=== PATIENT | female | born 1960 | race Caucasian/White ===

== ENCOUNTER 2017-06-29 17:52 | Emergency (ER) | payer OTHER ==
[2017-06-29] MEDS ORDERED: DERMABOND SKIN ADHESIVE TOP ONE (19:44)
[2017-06-29] MEDS ORDERED: TETANUS & DIPHTHERIA TOX,ADULT 0.5 ML VIAL ONE (19:45)
--- NOTE | 2017-06-29 19:55 | EDPHYS ---
Physician Documentation [facility] Name: Katie Velasquez Age: 56 yrs Sex: Female : 1960 Arrival Date: 06/29/2017 Time: 17:56 Bed 11 Private MD: ED Physician Luis Alberto Dickey HPI: 06/29 19:25 This 56 yrs old Female presents to ER via Ambulatory with complaints of rn Finger Injury. 19:25 Mechanism of injury: weedeater. Associated injuries: The patient sustained left hand. rn The patient has not experienced similar symptoms in the past. Reports using weedeater, got cut on left hand/fingers, tetanus not up to date, has cleaned her fingers repeatedly, + mild bleeding noted. . 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 - Social history:: Smoking status: Patient uses tobacco products, smokes one-half pack cigarettes per day. - Family history:: not pertinent. - Hospitalizations: : No recent hospitalization is reported. ROS: 19:25 Constitutional: Negative for fever, chills, and weight loss, MS/Extremity: + for injury rn and lacerations to left hand Exam: 19:25 Constitutional: This is a well developed, well nourished patient who is awake, alert, rn and in no acute distress. MS/ Extremity: Pulses equal, no cyanosis. Neurovascular intact. Full, normal range of motion. Equal circumference. Small subcentimeter lacerations to left distal 2nd/4th/5th digits, no foreign body, no active bleeding, wounds clean Vital Signs: 18:04 BP 119 / 88; Pulse 91; Resp 15; Temp 97.7; Pulse Ox 95% on R/A; Weight 64.41 kg; Height aj 5 ft. 3 in. (160.02 cm); Pain 2/10; 20:02 BP 153 / 89; Pulse 76; Resp 14; Pulse Ox 100% on R/A; Pain 4/10; bs1 18:04 Body Mass Index 25.15 (64.41 kg, 160.02 cm) aj Laceration: 19:50 Wound Repair of 0.5cm ( 0.2in ) subcutaneous laceration to left 2nd/4th/5th distal rn digits. Distal neuro/vascular/tendon intact. Wound prep: Extensive cleansing with hibiclenz by nurse, Wound irrigation by nurse. Skin closed with 3 thin layer Adhesive skin closure using Dermabond. Dressed with bandaid. Patient tolerated well. MDM: 19:20 Patient medically screened. rn 19:50 Differential diagnosis: finger lacerations. Data reviewed: vital signs, nurses notes, rn and as a result, I will discharge patient. Counseling: I had a detailed discussion with the patient and/or guardian regarding: the historical points, exam findings, and any diagnostic results supporting the discharge/admit diagnosis, the need for outpatient follow up, to return to the emergency department if symptoms worsen or persist or if there are any questions or concerns that arise at home. Response to treatment: the patient's symptoms have markedly improved after treatment, and as a result, I will discharge patient. Special discussion: I discussed with the patient/guardian in detail that at this point there is no indication for admission to the hospital. It is understood, however, that if the symptoms persist or worsen the patient needs to return immediately for re-evaluation. ED course: Wounds cleansed and closed with dermabond, tetanus updated, will dc home with augmentin given dirty wounds and now wounds are sealed. . 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 Exp: bs1 07/17/2019. Lot #: [id number]. } Route: IM; Site: right deltoid; 20:06 Follow up: Response: No adverse reaction bs1 Disposition: 06/29/17 19:54 Discharged to Home. Impression: Superficial lacerations of left 2nd/4th/5th digits. - Condition is Stable. - Discharge Instructions: Tissue Adhesive Wound Care. - Prescriptions for Augmentin 875- 125 mg Oral Tablet - take 1 tablet by ORAL route every 12 hours for 10 days; 20 tablet. - Medication Reconciliation Form, Thank You Letter, Antibiotic Education, Prescription Opioid Use form. - Follow up: Private Physician; When: As needed; Reason: Recheck today's complaints, Re-evaluation by your physician. - Problem is new. - Symptoms have improved. Signatures: Leandra Elliott, RN RN Luis Alberto Prescott MD MD rn Salazar, Brittany, RN RN bs1
--- NOTE | 2017-06-29 19:55 | ER ---
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 Transition of care: patient was not received from another setting of care. Onset of symptoms was June 29, 2017. Care prior to arrival: None. 18:03 Method Of Arrival: Ambulatory aj 18:03 Acuity: COTY 4 aj Triage Assessment: 18:04 General: Appears in no apparent distress. comfortable, Behavior is calm, cooperative, aj appropriate for age, Smells of alcohol. Pain: Complains of pain in palmar aspect of distal phalanx of left little finger, palmar aspect of distal phalanx of left ring finger and palmar aspect of distal phalanx of left index finger. Neuro: Level of Consciousness is awake, alert, obeys commands, Oriented to person, place, time, situation. Respiratory: Airway is patent Respiratory effort is even, unlabored, Respiratory pattern is regular, symmetrical. Derm: Skin is intact, is healthy with good turgor, Skin is pink, warm \T\ dry. normal. Musculoskeletal: Circulation, motion, and sensation intact. Injury Description: Laceration sustained to palmar aspect of distal phalanx of left little finger, palmar aspect of distal phalanx of left ring finger and palmar aspect of distal phalanx of left index finger. 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 - Social history:: Smoking status: Patient uses tobacco products, smokes one-half pack cigarettes per day. - Family history:: not pertinent. - Hospitalizations: : No recent hospitalization is reported. Screenin:45 Abuse screen: Denies threats or abuse. Denies injuries from another. Nutritional bs1 screening: No deficits noted. Tuberculosis screening: No symptoms or risk factors identified. Fall Risk None identified. Assessment: 19:35 General: Appears in no apparent distress. Behavior is calm. Pain: Complains of pain in bs1 left hand and palmar aspect of distal phalanx of left index finger and palmar aspect of distal phalanx of left ring finger and palmar aspect of distal phalanx of left little finger Pain does not radiate. Pain currently is 7 out of 10 on a pain scale. Quality of pain is described as throbbing. Neuro: Level of Consciousness is awake, alert, obeys commands, Oriented to person, place, time, situation, Appropriate for age. Respiratory: Airway is patent Trachea midline Respiratory effort is even, unlabored, Breath sounds are clear bilaterally. Derm: Wound noted. Derm: Wound noted left hand and palmar aspect of distal phalanx of left index finger and palmar aspect of distal phalanx of left ring finger and palmar aspect of distal phalanx of left little finger Bruising that is dark purple, less than 1 cm, no bleeding noted, red/swollen/bruised. Injury Description: Laceration. 19:45 Reassessment: Cleaned patients left hand with chlorahexidine. Prepared dermabond x2 at bs1 bedside for Dr Dickey, verbal order. Vital Signs: 18:04 BP 119 / 88; Pulse 91; Resp 15; Temp 97.7; Pulse Ox 95% on R/A; Weight 64.41 kg; Height aj 5 ft. 3 in. (160.02 cm); Pain 2/10; 20:02 BP 153 / 89; Pulse 76; Resp 14; Pulse Ox 100% on R/A; Pain 4/10; bs1 18:04 Body Mass Index 25.15 (64.41 kg, 160.02 cm) ED Course: 17:56 Patient arrived in ED. mr 18:03 Triage completed. aj 18:04 Arm band placed on right wrist. Patient placed in waiting room, Patient notified of aj wait time. 19:11 Hanny Cummings, MARÍA is Primary Nurse. bs1 19:20 Luis Alberto Dickey MD is Attending Physician. rn 19:45 Patient has correct armband on for positive identification. Call light in reach. bs1 20:06 No provider procedures requiring assistance completed. Patient did not have IV access bs1 during this emergency room visit. 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 Exp: bs1 07/17/2019. Lot #: [id number]. } Route: IM; Site: right deltoid; 20:06 Follow up: Response: No adverse reaction bs1 Outcome: 19:54 Discharge ordered by . rn 20:07 Discharged to home ambulatory. bs1 20:07 Condition: stable 20:07 Discharge instructions given to patient, Instructed on discharge instructions, follow up and referral plans. medication usage, Demonstrated understanding of instructions, follow-up care, medications, Prescriptions given X 1. 20:07 Patient left the ED. bs1 Signatures: Leandra Elliott, RN Suly Santos Roman, MD MD rn Salazar, Brittany, RN RN bs1
[2017-06-29 20:22] VITALS: TEMP 97.7
[2017-06-29 20:23] VITALS: BP 153/89; O2SAT 100
== END 2017-06-29 20:07 | disposition home or self-care (01) ==
LOC: ER 17:52
PROC: 0JQK0ZZ Repair Left Hand Subcutaneous Tissue and Fascia, Open Approach (ICD-10-PCS; principal; 2017-06-29)
DX: S61.215A Laceration without foreign body of left ring finger without damage to nail, initial encounter (principal); S61.217A Laceration without foreign body of left little finger without damage to nail, initial encounter; Y93.H2 Activity, gardening and landscaping; Y92.007 Garden or yard of unspecified non-institutional (private) residence as the place of occurrence of the external cause; Z88.8 Allergy status to other drugs, medicaments and biological substances; Z88.6 Allergy status to analgesic agent; Z91.030 Bee allergy status; Z23 Encounter for immunization; F17.210 Nicotine dependence, cigarettes, uncomplicated
CPT/HCPCS: 90714; 99283

== ENCOUNTER 2017-12-12 14:54 | Observation (INO) | payer OTHER ==
[2017-12-12] MEDS ORDERED: FAMOTIDINE 20 MG/2 ML VIAL IV ONE (15:45)
[2017-12-12] MEDS ORDERED: ONDANSETRON 4 MG/2 ML VIAL ONE (15:45)
[2017-12-12] MEDS ORDERED: MORPHINE 4 MG/ML SYR ONE (15:45)
[2017-12-12] MEDS ORDERED: NA CHLORIDE 0.9% 1,000 ML ONE (15:45)
[2017-12-12 15:53] LABS: Absolute Monocytes 0.6 K/uL (0.1-1.3); Absolute Neutrophil 8.7 K/uL (1.8-8.0); Basophils % 0.2 % (0-1.3); Eosinophils % 0.1 % (0-4.4); Hematocrit 44.9 % (36.0-45.0); Lymphocytes % 9.8 % (15.3-44.8); MCH 34.1 pg (27.0-35.0); MCV 98.8 fL (80-100); Monocytes % 5.7 % (3.3-12.3); RBC Red Blood Cell Count 4.54 M/uL (3.86-4.86)
[2017-12-12 16:27] LABS: Urine Bacteria <20 /HPF (<20); Urine Culture Reflex Order NOT NEEDED
[2017-12-12 16:28] LABS: ALT/SGPT 34 U/L (12-78); AST/SGOT 31 U/L (15-37); Albumin 3.8 g/dL (3.4-5.0); Alkaline Phosphatase 82 U/L (45-117); Amylase Level 105 U/L (25-115); BUN Blood Urea Nitrogen 9 mg/dL (7-18); Bicarbonate 25 mmol/L (21-32); Bilirubin Direct 0.2 mg/dL (0-0.2); Bilirubin Total 0.7 mg/dL (0.2-1.0); Glucose Level 97 mg/dL (74-106); Lipase 597 U/L (73-393); Potassium 3.9 mmol/L (3.5-5.1); Protein, Total 8.3 g/dL (6.4-8.2); Sodium Level 138 mmol/L (136-145)
[2017-12-12] MEDS ORDERED: DICYCLOMINE HCL 10 MG CAP ONE (16:52)
--- NOTE | 2017-12-12 17:47 | RAD REPORT ---
EXAM DESCRIPTION: CT - Abdomen Pelvis W Contrast - 12/12/2017 5:26 pm CLINICAL HISTORY: Abd pain;Nausea / vomiting<Reason For Exam>Abd pain;Nausea / vomiting COMPARISON: Abdomen Pelvis W Contrast dated 12/13/2016<Comparisons> CT December 2016 TECHNIQUE: Biphasic, helical CT imaging of the abdomen and pelvis was performed following 100 ml non -ionic IV contrast. Oral contrast was given. All CT scans are performed using dose optimization technique as appropriate and may include automated exposure control or mA/KV adjustment according to patient size. FINDINGS: No suspicious findings in the lung bases. Liver, spleen, gallbladder and biliary tree show no acute findings. Symmetric renal function is prese nt with no pyelonephritis or acute renal parenchymal process. No urinary bladder abnormality. Uterus and ovaries show no suspicious findings. Edematous/inflammatory stranding is present adjacent to the head of the pancreas with secondary invol vement of the duodenal C-loop and gastric antrum. Interface between the pancreatic head and duodenal bulb is diminished. No discrete mass identified. Body and tail of the pancreas show no significant fi ndings. Most likely etiology is pancreatitis with secondary bowel involvement. A primary duodenitis o r antritis would be less common. Fundus and body of the stomach show no suspicious findings. Distal duodenum and remainder of small [place] wel unremarkable. No primary colon process seen. The appendix is normal. No free air or pneumatosis. Trace free fluid in the cul-de-sac. No mass or bulky lymphadenopathy. No adrenal abnormality. Disc and bony degenerative changes are present. L5 pars interarticularis defects again noted. IMPRESSION: Mild pancreatitis involving the head of the pancreas. There is secondary involvement of the proximal duodenum and gastric antrum. No abscess, solid mass or other complicating factor.
[2017-12-12 17:59] LABS: Urine Blood 2+ (NEG); Urine Glucose NEGATIVE (NEG); Urine Protein 1+ (NEG); Urine pH 5.5 (5.0-7.0)
[2017-12-12] MEDS ORDERED: PANTOPRAZOLE 40 MG INJ ONE (18:26)
--- NOTE | 2017-12-12 19:46 | ER ---
Nurse's Notes [facility] Name: Katie Velasquez Age: 57 yrs Sex: Female : 1960 Arrival Date: 12/12/2017 Time: 14:57 Bed 28 Private MD: None, None Diagnosis: Acute pancreatitis Presentation: 12/12 15:02 Presenting complaint: Patient states: Abd pain/distension, constipation since last la1 night with vomiting. Transition of care: patient was not received from another setting of care. Onset of symptoms was December 12, 2017. Risk Assessment: Do you want to hurt yourself or someone else? Patient reports no desire to harm self or others. Initial Sepsis Screen: Does the patient meet any 2 criteria? No. Patient's initial sepsis screen is negative. Does the patient have a suspected source of infection? No. Patient's initial sepsis screen is negative. Care prior to arrival: None. 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 - Social history:: Smoking status: Patient uses tobacco products, smokes one-half pack cigarettes per day. - Ebola Screening: : No symptoms or risks identified at this time. Screenin:18 Abuse screen: Denies threats or abuse. Denies injuries from another. Nutritional mg2 screening: No deficits noted. Tuberculosis screening: No symptoms or risk factors identified. Fall Risk None identified. Assessment: 15:19 General: Appears in no apparent distress. uncomfortable, Behavior is calm, cooperative. mg2 Pain: Complains of pain in andomen Pain does not radiate. Pain currently is 8 out of 10 on a pain scale. Quality of pain is described as aching, Pain began gradually, Is intermittent, Alleviated by medications, rest. Neuro: Level of Consciousness is awake, alert, obeys commands, Oriented to person, place, time, situation. Cardiovascular: Capillary refill < 3 seconds Patient's skin is warm and dry. Respiratory: Airway is patent Respiratory effort is even, unlabored, Respiratory pattern is regular, symmetrical. GI: Abdomen is flat, Abd is soft and non tender X 4 quads. : No signs and/or symptoms were reported regarding the genitourinary system. EENT: No signs and/or symptoms were reported regarding the EENT system. Derm: Skin is intact, Skin is pink, warm \T\ dry. normal. Musculoskeletal: Circulation, motion, and sensation intact. 16:00 GI: Bowel sounds present X 4 quads. mg2 16:23 Reassessment: Patient appears in no apparent distress at this time. Patient and/or mg2 family updated on plan of care and expected duration. Pain level reassessed. Patient is alert, oriented x 3, equal unlabored respirations, skin warm/dry/pink. 18:30 Reassessment: Patient appears in no apparent distress at this time. Patient and/or mg2 family updated on plan of care and expected duration. Pain level reassessed. Patient is alert, oriented x 3, equal unlabored respirations, skin warm/dry/pink. 20:28 Reassessment: Patient appears in no apparent distress at this time. Patient and/or mg2 family updated on plan of care and expected duration. Pain level reassessed. Patient is alert, oriented x 3, equal unlabored respirations, skin warm/dry/pink. patient informed about the admission, she agreed. Vital Signs: 15:03 BP 143 / 79; Pulse 74; Resp 16; Temp 98.6; Pulse Ox 100% on R/A; Weight 64.86 kg; la1 16:23 BP 159 / 66; Pulse 61; Resp 18; Pulse Ox 100% on R/A; mg2 17:30 BP 143 / 70; Pulse 62; Resp 18; Pulse Ox 100% on R/A; Pain 2/10; mg2 18:30 BP 147 / 100; Pulse 57; Resp 18; Pulse Ox 100% on R/A; Pain 2/10; mg2 20:27 BP 152 / 67; Pulse 54; Resp 18; Pulse Ox 100% on R/A; Pain 3/10; mg2 21:31 BP 143 / 58; Pulse 73; Resp 18; Temp 98.6; Pulse Ox 100% on R/A; Pain 2/10; mg2 21:48 BP 132 / 64; Pulse 54; Resp 18; Temp 98.4(O); Pulse Ox 100% on R/A; Pain 2/10; fc ED Course: 14:57 Patient arrived in ED. mr 14:58 None, None is Private Physician. mr 15:03 Triage completed. la1 15:03 Arm band placed on left wrist. la1 15:14 Juan Antonio Bojorquez, MARÍA is Primary Nurse. mg2 15:16 Marc Mas PA is PHCP. cp 15:16 Deep Townsend MD is Attending Physician. cp 15:18 Patient has correct armband on for positive identification. Bed in low position. Call mg2 light in reach. Side rails up X 1. Pulse ox on. NIBP on. 17:26 CT completed. Patient moved to CT via wheelchair. Patient moved back from CT. la2 17:26 CT Abd/Pelvis - W/Contrast In Process Unspecified. EDMS 19:38 Inserted saline lock: 20 gauge in right wrist, using aseptic technique. mg2 19:38 Initial lab(s) drawn, by mo, sent to lab. mg2 19:45 Maia Xiong MD is Hospitalizing Provider. cp 21:32 No provider procedures requiring assistance completed. Patient admitted, IV remains in mg2 place. Administered Medications: 15:47 Drug: Zofran 4 mg Route: IVP; Site: right wrist; mg2 18:27 Follow up: Response: No adverse reaction; Marked relief of symptoms mg2 15:47 Drug: Pepcid 20 mg Route: IVP; Site: right wrist; mg2 18:27 Follow up: Response: No adverse reaction; Marked relief of symptoms mg2 15:47 Drug: NS 0.9% 500 ml Route: IV; Rate: bolus; Site: right wrist; mg2 21:34 Follow up: Response: No adverse reaction; IV Status: Completed infusion mg2 16:11 Not Given (Patient Refused): morphine 2 mg IVP once mg2 16:11 Drug: NS 0.9% 1000 ml Route: IV; Rate: 125 ml/hr; Site: right wrist; mg2 21:34 Follow up: Response: No adverse reaction; IV Status: Infusion continued upon admission mg2 16:50 Drug: Bentyl 20 mg Route: PO; mg2 17:50 Follow up: Response: No adverse reaction; Marked relief of symptoms mg2 18:25 Drug: ProTONIX 40 mg Route: IVP; Site: right antecubital; mg2 19:38 Follow up: Response: No adverse reaction; Marked relief of symptoms mg2 Outcome: 19:46 Decision to Hospitalize by Provider. cp 21:32 Admitted to Tele accompanied by tech, via wheelchair, room 406, with chart, Report mg2 called to MARÍA Glass 21:32 Condition: stable 21:32 Instructed on the need for admit, Demonstrated understanding of instructions. 22:05 Patient left the ED. mg2 Signatures: Dispatcher [employer] Suly Tiwari Felicia, RN RN fc Attema, Lee, RN RN la1 Marc Mas PA PA cp Ardoin, Leslie la2 Juan Antonio Bojorquez RN RN mg2
--- NOTE | 2017-12-12 19:47 | EDPHYS ---
Physician Documentation [facility] Name: Katie Velasquez Age: 57 yrs Sex: Female : 1960 Arrival Date: 12/12/2017 Time: 14:57 Bed 28 Private MD: None, None ED Physician Deep Townsend HPI: 12/12 15:30 This 57 yrs old Female presents to ER via Ambulatory with complaints of cp Abdominal Pain. 15:30 The patient presents with abdominal pain in the epigastric area, in the upper abdomen. cp Onset: The symptoms/episode began/occurred last night, and became worse today. Associated signs and symptoms: Pertinent positives: anorexia, constipation, nausea, vomiting, Pertinent negatives: blood in stools, diarrhea, fever, shortness of breath, vomiting blood. Modifying factors: the symptoms are aggravated by pressure. Severity of pain: in the emergency department the pain is actually worse. 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 - Social history:: Smoking status: Patient uses tobacco products, smokes one-half pack cigarettes per day. - Ebola Screening: : No symptoms or risks identified at this time. ROS: 15:35 Constitutional: Positive for poor PO intake, Negative for body aches, chills, fever. cp 15:35 Eyes: Negative for injury, pain, redness, and discharge. cp 15:35 ENT: Negative for drainage from ear(s), ear pain, sore throat, difficulty swallowing, difficulty handling secretions. 15:35 Cardiovascular: Negative for chest pain, edema, palpitations. 15:35 Respiratory: Negative for cough, shortness of breath, wheezing. 15:35 Abdomen/GI: Positive for abdominal pain, nausea and vomiting, anorexia, Negative for diarrhea, constipation, black/tarry stool, rectal bleeding. 15:35 Back: Negative for injury or acute deformity. 15:35 : Negative for urinary symptoms, vaginal bleeding, vaginal discharge. 15:35 Skin: Negative for cellulitis, rash. 15:35 Neuro: Negative for altered mental status, headache, weakness. 15:35 All other systems are negative. Exam: 15:42 Constitutional: The patient appears in no acute distress, alert, awake, cp non-diaphoretic, well developed, well nourished, uncomfortable. 15:42 Head/Face: Normocephalic, atraumatic. Eyes: Pupils equal round and reactive to light, cp extra-ocular motions intact. Lids and lashes normal. Conjunctiva and sclera are non-icteric and not injected. Cornea within normal limits. Periorbital areas with no swelling, redness, or edema. ENT: Nares patent. No nasal discharge, no septal abnormalities noted. Tympanic membranes are normal and external auditory canals are clear. Oropharynx with no redness, swelling, or masses, exudates, or evidence of obstruction, uvula midline. Mucous membranes moist. Chest/axilla: Normal chest wall appearance and motion. Nontender with no deformity. No lesions are appreciated. 15:42 Cardiovascular: Rate: normal, Rhythm: regular, Edema: is not appreciated, JVD: is not appreciated. 15:42 Respiratory: the patient does not display signs of respiratory distress, Respirations: normal, no use of accessory muscles, no retractions, no splinting, no tachypnea, labored breathing, is not present, Breath sounds: are clear throughout, no decreased breath sounds, no stridor, no wheezing. 15:42 Abdomen/GI: Inspection: abdomen appears normal, Bowel sounds: active, all quadrants, Palpation: soft, in all quadrants, moderate abdominal tenderness, in the epigastric area, right upper quadrant and left upper quadrant, rebound tenderness, is not appreciated, voluntary guarding, is elicited in the epigastric area, right upper quadrant and left upper quadrant. 15:42 Back: CVA tenderness, is absent. 15:42 Skin: cellulitis, is not appreciated, no rash present. 15:42 Neuro: Orientation: to person, place \T\ time. Mentation: lucid, able to follow commands, Cerebellar function: is grossly normal, Motor: moves all fours, strength is normal, Sensation: no obvious gross deficits. Vital Signs: 15:03 BP 143 / 79; Pulse 74; Resp 16; Temp 98.6; Pulse Ox 100% on R/A; Weight 64.86 kg; la1 16:23 BP 159 / 66; Pulse 61; Resp 18; Pulse Ox 100% on R/A; mg2 17:30 BP 143 / 70; Pulse 62; Resp 18; Pulse Ox 100% on R/A; Pain 2/10; mg2 18:30 BP 147 / 100; Pulse 57; Resp 18; Pulse Ox 100% on R/A; Pain 2/10; mg2 20:27 BP 152 / 67; Pulse 54; Resp 18; Pulse Ox 100% on R/A; Pain 3/10; mg2 21:31 BP 143 / 58; Pulse 73; Resp 18; Temp 98.6; Pulse Ox 100% on R/A; Pain 2/10; mg2 21:48 BP 132 / 64; Pulse 54; Resp 18; Temp 98.4(O); Pulse Ox 100% on R/A; Pain 2/10; fc MDM: 15:22 Patient medically screened. cp 16:00 Differential diagnosis: AAA, acute coronary syndrome, appendicitis, bowel obstruction, cp coronary artery disease, Cholelithiasis, diverticulitis, non-specific abd pain, pancreatitis. 18:00 Data reviewed: vital signs, nurses notes, lab test result(s), radiologic studies, CT cp scan, VSS. Patient reports history of pancreatitis due to alcohol use and reports daily to almost daily drinking, and as a result, I will admit patient. 18:20 Physician consultation: Karolina Reeder MD was called at 18:20, left message on voicemail. 19:43 Physician consultation: Maia Xiong MD was called at 19:44, was contacted at 19:44, regarding admission, to the medical/surgical unit. patient's condition. 12/12 15:23 Order name: Amylase, Serum; Complete Time: 17:50 12/12 15:23 Order name: Basic Metabolic Panel; Complete Time: 17:50 12/12 15:23 Order name: CBC with Diff; Complete Time: 17:50 12/12 18:11 Interpretation: Normal except: HGB 15.5; MCV 98.8; RAS% 84.2; NEUT A 8.7; LYM% 9.8. 12/12 15:23 Order name: Creatinine for Radiology; Complete Time: 17:50 12/12 15:23 Order name: Hepatic Function; Complete Time: 17:50 12/12 18:11 Interpretation: Normal except: TP 8.3; GLOB 4.5; A/G 0.8. cp 12/12 15:23 Order name: Lipase; Complete Time: 17:50 12/12 17:50 Interpretation: Abnormal: LIP 597. 12/12 15:23 Order name: Urine Microscopic Only; Complete Time: 17:50 12/12 17:50 Interpretation: Normal except: URBC 5-10; SQEPI 5-10. 12/12 15:28 Order name: CT Abd/Pelvis - W/Contrast; Complete Time: 17:50 12/12 17:52 Interpretation: Report reviewed. 12/12 15:28 Order name: Magnesium; Complete Time: 17:50 12/12 15:52 Order name: Urine Dipstick--Ancillary (enter results); Complete Time: 18:11 12/12 18:11 Interpretation: Normal except: UKET 4+; UBLD 2+; UPROT 1+. 12/12 15:52 Order name: Urine --Ancillary (enter results); Complete Time: 18:11 12/12 18:40 Order name: ETOH Level 12/12 15:23 Order name: IV Saline Lock; Complete Time: 15:36 12/12 15:23 Order name: Labs collected and sent; Complete Time: 15:36 12/12 15:23 Order name: Urine Dipstick-Ancillary (obtain specimen); Complete Time: 15:28 cp Administered Medications: 15:47 Drug: Zofran 4 mg Route: IVP; Site: right wrist; mg2 18:27 Follow up: Response: No adverse reaction; Marked relief of symptoms mg2 15:47 Drug: Pepcid 20 mg Route: IVP; Site: right wrist; mg2 18:27 Follow up: Response: No adverse reaction; Marked relief of symptoms mg2 15:47 Drug: NS 0.9% 500 ml Route: IV; Rate: bolus; Site: right wrist; mg2 21:34 Follow up: Response: No adverse reaction; IV Status: Completed infusion mg2 16:11 Not Given (Patient Refused): morphine 2 mg IVP once mg2 16:11 Drug: NS 0.9% 1000 ml Route: IV; Rate: 125 ml/hr; Site: right wrist; mg2 21:34 Follow up: Response: No adverse reaction; IV Status: Infusion continued upon admission mg2 16:50 Drug: Bentyl 20 mg Route: PO; mg2 17:50 Follow up: Response: No adverse reaction; Marked relief of symptoms mg2 18:25 Drug: ProTONIX 40 mg Route: IVP; Site: right antecubital; mg2 19:38 Follow up: Response: No adverse reaction; Marked relief of symptoms mg2 Disposition: 12/13 08:01 Co-signature as Attending Physician, Deep Townsend MD I agree with the assessment and kdr plan of care. Disposition: 12/12/17 19:46 Hospitalization ordered by Maia Xiong for Observation. Preliminary diagnosis is Acute pancreatitis. - Bed requested for Telemetry/MedSurg (observation). - Status is Observation. mg2 - Condition is Stable. - Problem is new. - Symptoms have improved. UTI on Admission? No Signatures: Dispatcher [employer] EDMS Opal Wilson RN RN Deep Townsend MD MD [facility] Mukul Azar RN RN la1 Marc Mas PA PA Juan Antonio Constantino RN RN mg2 Corrections: (The following items were deleted from the chart) 12/12 18:11 17:50 Normal except: HGB 15.5; MCV 98.8. cp cp 19:54 19:46 Hospitalization Ordered by Maia Xiong MD for Observation. Preliminary mw diagnosis is Acute pancreatitis. Bed requested for Telemetry/MedSurg (observation). Status is Observation. Condition is Stable. Problem is new. Symptoms have improved. UTI on Admission? No. cp 22:05 19:54 12/12/2017 19:46 Hospitalization Ordered by Maia Xiong MD for Observation. mg2 Preliminary diagnosis is Acute pancreatitis. Bed requested for Telemetry/MedSurg (observation). Status is Observation. Condition is Stable. Problem is new. Symptoms have improved. UTI on Admission? No. mw
[2017-12-12] MEDS ORDERED: ONDANSETRON 4 MG/2 ML VIAL IV PRN (21:17)
[2017-12-12] MEDS ORDERED: ACETAMINOPHEN 500 MG TAB PO PRN (21:17)
[2017-12-12 22:55] VITALS: BMI 25.0
[2017-12-12] MEDS: NA CHLORIDE 0.9% 1,000 ML IV SCH (22:56)
[2017-12-12 23:13] LABS: Urine Appearance CLEAR; Urine Bilirubin NEGATIVE (NEG); Urine Blood 2+ (NEG); Urine Color YELLOW; Urine Glucose NEGATIVE (NEG); Urine Protein NEGATIVE (NEG); Urine Specific Gravity >=1.030 (1.005-1.030); Urine Urobilinogen 0.2 mg/dL (0.2-1.0)
[2017-12-12 23:17] LABS: Urine Microscopic Reflex ORDER UMIC
[2017-12-12 23:29] LABS: Urine Bacteria <20 /HPF (<20); Urine Culture Reflex Order NOT NEEDED; Urine RBC <5 /HPF (NONE SEEN)
[2017-12-13] MEDS: HYDROMORPHONE HCL 1 MG/ML INJ IV PRN ×2 (00:07→18:21)
[2017-12-13 05:39] LABS: Absolute Lymphocytes (CBC) 1.7 K/uL (0.7-4.9); Absolute Monocytes 0.7 K/uL (0.1-1.3); Absolute Neutrophil 6.5 K/uL (1.8-8.0); Basophils % 0.4 % (0-1.3); Eosinophils % 0.4 % (0-4.4); Hematocrit 40.5 % (36.0-45.0); Lymphocytes % 19.1 % (15.3-44.8); MCH 34.5 pg (27.0-35.0); MCV 100.1 fL (80-100); MPV 7.6 fL (7.6-11.3); Monocytes % 7.7 % (3.3-12.3); RBC Red Blood Cell Count 4.04 M/uL (3.86-4.86)
[2017-12-13 05:59] LABS: ALT/SGPT 24 U/L (12-78); AST/SGOT 20 U/L (15-37); Albumin 3.2 g/dL (3.4-5.0); Alkaline Phosphatase 60 U/L (45-117); BUN Blood Urea Nitrogen 6 mg/dL (7-18); Bicarbonate 27 mmol/L (21-32); Bilirubin Total 0.6 mg/dL (0.2-1.0); Glucose Level 81 mg/dL (74-106); Magnesium 1.9 mg/dL (1.8-2.4); Phosphorus 2.8 mg/dL (2.5-4.9); Potassium 3.7 mmol/L (3.5-5.1); Protein, Total 6.7 g/dL (6.4-8.2); Sodium Level 141 mmol/L (136-145)
--- NOTE | 2017-12-13 07:48 | P.HP ---
Certification for Inpatient Patient admitted to: Observation With expected LOS: <2 Midnights Patient will require the following post-hospital care: None Practitioner: I am a practitioner with admitting privileges, knowledge of patient current condition, hospital course, and medical plan of care. Services: Services provided to patient in accordance with Admission requirements found in Title 42 Section 412.3 of the Code of Federal Regulations Patient History Date of Service: 12/12/17 Reason for admission: Acute pancreatitis History of Present Illness: Patient is a 57-year-old female who was well known to me from prior admissions. She comes into the hospital with complaints of abdominal discomfort. Pain was mainly in the epigastric region and radiated to her back. She had similar complaints about a year ago. That happened when she was under a lot of stress and started drinking heavily. She had a flareup over acute pancreatitis. She has continued to drink on an off. She states she was drinking a little more heavily-she has been drinking 8 small drinks every evening. Her abdomen started hurting and she started having intractable nausea and vomiting. She came into the emergency room and her workup revealed an elevated lipase level. She continues to have some nausea. She will be admitted to the hospital for further evaluation. Allergies aspirin Allergy (Verified 12/12/17 20:19) Rash bee sting Allergy (Intermediate, Uncoded 12/12/17 22:47) Hives Bees Allergy (Intermediate, Uncoded 12/12/17 22:47) Hives unknown muscle relaxer Allergy (Uncoded 12/12/17 22:47) Rash Home Medications: NK [No Home Meds] 12/12/17 - Past Medical/Surgical History Has patient received pneumonia vaccine in the past: No Diabetic: No -: Alcohol use -: Pancreatitis Past Surgical History: Patient denies surgical history - Family History Father Family History: Reviewed- Non-Contributory - Social History Smoking Status: Current every day smoker Alcohol use: Yes CD- Drugs: No Caffeine use: Yes Place of Residence: Home Review of Systems 10-point ROS is otherwise unremarkable Physical Examination - Vital Signs Temperature: 98.0 F Blood Pressure: 150/70 Pulse: 67 Respirations: 18 Pulse Ox (%): 98 - Physical Exam General: Alert, In no apparent distress, Oriented x3 HEENT: Atraumatic, PERRLA, Mucous membr. moist/pink, EOMI, Sclerae nonicteric Neck: Supple, 2+ carotid pulse no bruit, No LAD, Without JVD or thyroid abnormality Respiratory: Clear to auscultation bilaterally, Normal air movement Cardiovascular: Regular rate/rhythm, Normal S1 S2, No murmurs Gastrointestinal: Normal bowel sounds, Soft and benign, Non-distended, No rebound, No guarding, Tenderness Musculoskeletal: No clubbing, No swelling, No tenderness Integumentary: No rashes Neurological: Normal gait, Normal speech, Normal strength at 5/5 x4 extr, Normal tone, Sensation intact, Cranial nerves 3-12 intact, Normal affect Lymphatics: No axilla or inguinal lymphadenopathy - Studies Laboratory Data (last 24 hrs) 12/12/17 15:35: Magnesium 1.8 12/12/17 15:35: Creatinine 0.60 12/12/17 15:35: WBC 10.4, Hgb 15.5 H, Hct 44.9, Plt Count 225 12/12/17 15:35: Sodium 138, Potassium 3.9, BUN 9, Creatinine 0.60, Glucose 97, Total Bilirubin 0.7, AST 31, ALT 34, Alkaline Phosphatase 82, Amylase 105, Lipase 597 H Assessment & Plan - Problems (Diagnosis) (1) Acute pancreatitis Onset Date: 12/16/16 Current Visit: No Status: Acute Qualifiers: Pancreatitis type: alcohol induced (2) Alcohol abuse Onset Date: 12/16/16 Current Visit: No Status: Acute - Plan Plan: 1. Continue with IV hydration 2. 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 Continue with pain control 4. NPO 5. GI consultation if symptoms continue to worsen 6. Monitor CBC, BMP, LFTs and lipase along with electrolytes. 7. GI and DVT prophylaxis Discharge Plan: Home Plan to discharge in: 48 Hours - Advance Directives Does patient have a Living Will: No Does patient have a Durable POA for Healthcare: No - Code Status/Comfort Care Code Status Assessed: Yes Code Status: Full Code Critical Care: No Time Spent Managing PTS Care (In Minutes): 45
[2017-12-13] MEDS: NA CHLORIDE 0.9% 1,000 ML IV SCH ×2 (08:02→17:17)
[2017-12-13] MEDS: ENOXAPARIN 40 MG/0.4 ML SQ SCH (08:03)
[2017-12-13] MEDS ORDERED: KCL 20 MEQ/100 mL IVPB 20 MEQ/100 ML BAG IV SCH (09:00)
--- NOTE | 2017-12-13 10:33 | P.PN ---
Subjective Date of Service: 12/13/17 Chief Complaint: Acute pancreatitis Subjective: Improving (Patient is doing better pain resolved) Review of Systems Unremarkable Physical Examination - Vital Signs Temperature: 98.0 F Blood Pressure: 158/74 Pulse: 60 Respirations: 16 Pulse Ox (%): 98 - Physical Exam General: Alert, Oriented x3 Cardiovascular: No edema, Normal S1 S2 Gastrointestinal: Normal bowel sounds, Soft and benign, Non-distended, No tenderness - Studies Laboratory Data (last 24 hrs) 12/12/17 15:35: Magnesium 1.8 12/12/17 15:35: Creatinine 0.60 12/12/17 15:35: WBC 10.4, Hgb 15.5 H, Hct 44.9, Plt Count 225 12/12/17 15:35: Sodium 138, Potassium 3.9, BUN 9, Creatinine 0.60, Glucose 97, Total Bilirubin 0.7, AST 31, ALT 34, Alkaline Phosphatase 82, Amylase 105, Lipase 597 H Assessment & Plan - Problems (Diagnosis) (1) Acute pancreatitis Onset Date: 12/16/16 Current Visit: No Status: Acute Plan: Patient is 57 years of age admitted with acute pancreatitis disease recurrent episode possibly induced by alcohol patient had an episode of pancreatitis about a year ago DT scan shows pancreatitis lipase is improving start on liquids blood pressure is little elevated continue to monitor CBC mild macrocytosis Qualifiers: Pancreatitis type: alcohol induced
[2017-12-13] MEDS: THIAMINE HCL 100 MG TABLET PO SCH (11:37)
[2017-12-14] MEDS: NA CHLORIDE 0.9% 1,000 ML IV SCH ×2 (03:02→14:00)
[2017-12-14 05:10] LABS: BUN Blood Urea Nitrogen 5 mg/dL (7-18); Bicarbonate 28 mmol/L (21-32); Glucose Level 90 mg/dL (74-106); Potassium 3.9 mmol/L (3.5-5.1); Sodium Level 136 mmol/L (136-145)
[2017-12-14] MEDS ORDERED: POTASSIUM CL SA 10 MEQ TAB PO ONE (05:13)
[2017-12-14] MEDS: THIAMINE HCL 100 MG TABLET PO SCH (08:22)
[2017-12-14] MEDS: ENOXAPARIN 40 MG/0.4 ML SQ SCH (08:22)
[2017-12-14 10:00] VITALS: O2SAT 98
[2017-12-14 12:35] VITALS: BP 148/84; TEMP 98
--- NOTE | 2017-12-14 13:03 | DS ---
Date of Discharge: 12/14/2017 Discharge Diagnoses: 1. Acute pancreatitis secondary to alcohol. 2. Alcohol abuse. 3. Nicotine dependence with cigarette smoking, counseled. Hospital Course: The patient is a 57-year-old female with history of previous pancreatitis secondary to alcohol, comes in with abdominal pain and lipase levels that were elevated. CT scan of the abdomen and pelvis was done, which showed mild pancreatitis in the head of the pancreas secondary involvement of the proximal duodenum and gastric antrum. There was no abscess, solid mass or other complicating factor. The patient was started on IV fluids, pain medications. Her white blood cell count was normal. The patient's pain improved. She was counseled regarding her alcohol use and tobacco use. She understands that the alcohol was the reason for her pancreatitis and does not plan on drinking further at this time. No signs of acute withdrawal. The patient was started on clear liquid diet's, which she tolerated well; advanced to bland diet, which she was able to tolerate. The patient's pain resolved. She was asymptomatic. No further nausea or vomiting. The patient was then discharged home in a stable condition. Activity: As tolerated. Medications: As per medication. Followup: The patient is to follow up with primary care physician within 1 week. Return to ER for worsening condition. Diet: Jack diet. Physical Examination: General: Awake, alert, oriented, no acute distress. CV: S1, S2. No murmurs. Respiratory: Moving air well bilaterally. Abdomen: Soft, nontender, nondistended. Positive bowel sounds. Extremities: No clubbing, cyanosis, or edema. Neurologic: Nonfocal. /NATALIE Voice ID: [id number] Report ID: [id number] ARIANNA
== END 2017-12-14 15:32 | disposition home or self-care (01) ==
LOC: ER 14:54 → ERHOLD 20:23 → 4TH 21:35
PROVIDERS: ADMIT Hospitalist; ATTEND Hospitalist
DX: K85.20 Alcohol induced acute pancreatitis without necrosis or infection (principal); Z88.6 Allergy status to analgesic agent; Z91.030 Bee allergy status; F17.210 Nicotine dependence, cigarettes, uncomplicated
CPT/HCPCS: 36415; 74177; 80048; 80053; 80076; 80320; 81003; 81015; 81025; 82150; 83690; 83735; 84100; 85025; 99285; C9113; G0378; J1170; J1650; J2405; J7030; Q9967

== ENCOUNTER 2018-07-24 05:28 | Inpatient (IN) | payer OTHER ==
[2018-07-24 06:08] LABS: Absolute Lymphocytes (CBC) 1.4 K/uL (0.7-4.9); Absolute Monocytes 0.6 K/uL (0.1-1.3); Absolute Neutrophil 6.5 K/uL (1.8-8.0); Basophils % 0.4 % (0-1.3); Eosinophils % 0.8 % (0-4.4); Hematocrit 43.7 % (36.0-45.0); Lymphocytes % 16.7 % (15.3-44.8); MPV 8.2 fL (7.6-11.3); Monocytes % 7.1 % (3.3-12.3); RBC Red Blood Cell Count 4.42 M/uL (3.86-4.86)
[2018-07-24 06:25] LABS: Bilirubin Direct 0.2 mg/dL (0-0.2); Bilirubin Total 0.7 mg/dL (0.2-1.0); Potassium 3.3 mmol/L (3.5-5.1); Protein, Total 7.9 g/dL (6.4-8.2)
[2018-07-24] MEDS ORDERED: ONDANSETRON 4 MG/2 ML VIAL ONE ×2 (07:01→09:07)
[2018-07-24] MEDS ORDERED: NA CHLORIDE 0.9% 2,000 ML ONE (07:01)
[2018-07-24] MEDS ORDERED: FENTANYL CITR 100 MCG/2 ML ONE ×3 (07:01→11:43)
[2018-07-24 07:58] LABS: Urine Bacteria >50 /HPF (<20); Urine Culture Reflex Order NOT NEEDED; Urine Mucus 4+ /HPF (NONE SEEN)
[2018-07-24 08:25] LABS: Urine Blood 2+ (NEG); Urine Glucose NEGATIVE (NEG); Urine Protein 1+ (NEG); Urine Specific Gravity 1.025 (1.005-1.030); Urine pH 5.5 (5.0-7.0)
[2018-07-24] MEDS ORDERED: MORPHINE 4 MG/ML SYR ONE (08:48)
[2018-07-24] MEDS ORDERED: CEFTRIAXONE/SWI 1gm 1 GM/10 ML SYR ONE (08:48)
--- NOTE | 2018-07-24 10:47 | EDPHYS ---
Physician Documentation [facility] Name: Katie Velasquez Age: 57 yrs Sex: Female : 1960 Arrival Date: 07/24/2018 Time: 05:30 Bed 18 Private MD: ED Physician Jude Segura HPI: 07/24 07:43 This 57 yrs old Female presents to ER via Ambulatory with complaints of snw Abdominal Pain. 07:43 The patient presents with abdominal pain that is diffuse. Onset: The symptoms/episode snw began/occurred gradually, 3 day(s) ago. The symptoms do not radiate. Associated signs and symptoms: Pertinent positives: nausea and vomiting. The symptoms are described as sharp. Severity of pain: At its worst the pain was moderate. The patient has experienced similar episodes in the past, with the last episode occurring last year. It is unknown whether or not the patient has recently seen a physician. 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 - Social history:: Smoking status: Patient uses tobacco products, smokes one-half pack cigarettes per day. - Ebola Screening: : Patient negative for fever greater than or equal to 101.5 degrees Fahrenheit, and additional compatible Ebola Virus Disease symptoms Patient denies exposure to infectious person Patient denies travel to an Ebola-affected area in the 21 days before illness onset No symptoms or risks identified at this time. ROS: 07:42 Constitutional: Negative for fever, chills, and weight loss, Eyes: Negative for injury, snw pain, redness, and discharge, ENT: Negative for injury, pain, and discharge, Neck: Negative for injury, pain, and swelling, Cardiovascular: Negative for chest pain, palpitations, and edema, Respiratory: Negative for shortness of breath, cough, wheezing, and pleuritic chest pain, Abdomen/GI: Positive for abdominal pain, nausea, vomiting, Denies diarrhea and constipation, Back: Negative for injury and pain, : Negative for injury, bleeding, discharge, and swelling, MS/Extremity: Negative for injury and deformity, Skin: Negative for injury, rash, and discoloration, Neuro: Negative for headache, weakness, numbness, tingling, and seizure. Exam: 07:42 Constitutional: This is a well developed, well nourished patient who is awake, alert, snw and in no acute distress. Head/Face: Normocephalic, atraumatic. Eyes: Pupils equal round and reactive to light, extra-ocular motions intact. Lids and lashes normal. Conjunctiva and sclera are non-icteric and not injected. Cornea within normal limits. Periorbital areas with no swelling, redness, or edema. ENT: Nares patent. No nasal discharge, no septal abnormalities noted. Tympanic membranes are normal and external auditory canals are clear. Oropharynx with no redness, swelling, or masses, exudates, or evidence of obstruction, uvula midline. Mucous membranes moist. Neck: Trachea midline, no thyromegaly or masses palpated, and no cervical lymphadenopathy. Supple, full range of motion without nuchal rigidity, or vertebral point tenderness. No Meningismus. Chest/axilla: Normal chest wall appearance and motion. Nontender with no deformity. No lesions are appreciated. Cardiovascular: Regular rate and rhythm with a normal S1 and S2. No gallops, murmurs, or rubs. Normal PMI, no JVD. No pulse deficits. Respiratory: Lungs have equal breath sounds bilaterally, clear to auscultation and percussion. No rales, rhonchi or wheezes noted. No increased work of breathing, no retractions or nasal flaring. Back: No spinal tenderness. No costovertebral tenderness. Full range of motion. Skin: Warm, dry with normal turgor. Normal color with no rashes, no lesions, and no evidence of cellulitis. MS/ Extremity: Pulses equal, no cyanosis. Neurovascular intact. Full, normal range of motion. Neuro: Awake and alert, GCS 15, oriented to person, place, time, and situation. Cranial nerves II-XII grossly intact. Motor strength 5/5 in all extremities. Sensory grossly intact. Cerebellar exam normal. Normal gait. Psych: Awake, alert, with orientation to person, place and time. Behavior, mood, and affect are within normal limits. 07:42 Abdomen/GI: Inspection: abdomen appears normal, Bowel sounds: normal, Palpation: mild abdominal tenderness, in all quadrants. Vital Signs: 05:46 BP 154 / 89; Pulse 79; Resp 16; Temp 98.1; Pulse Ox 99% on R/A; Weight 64.41 kg; Height ed1 5 ft. 4 in. (162.56 cm); Pain 7/10; 07:30 BP 171 / 78; Pulse 65; Resp 16; Pulse Ox 99% on R/A; Pain 8/10; em 08:30 BP 158 / 77; Pulse 69; Resp 18; Pulse Ox 99% on R/A; Pain 10/10; em 09:26 BP 156 / 79; Pulse 64; Resp 16; Pulse Ox 99% on R/A; em 11:00 BP 148 / 81; Pulse 71; Resp 18; Pulse Ox 99% on R/A; em 12:45 BP 161 / 81; Pulse 64; Resp 16; Pulse Ox 95% on R/A; Pain 4/10; em 05:46 Body Mass Index 24.37 (64.41 kg, 162.56 cm) ed1 MDM: 06:12 Patient medically screened. snw 09:15 Data reviewed: vital signs, nurses notes. Data interpreted: Pulse oximetry: on room air snw is 99 %. Interpretation: normal. Counseling: I had a detailed discussion with the patient and/or guardian regarding: the historical points, exam findings, and any diagnostic results supporting the discharge/admit diagnosis, the presence of at least one elevated blood pressure reading (>120/80) during this emergency department visit, lab results, the need for outpatient follow up. Response to treatment: the patient's symptoms have markedly improved after treatment, no vomiting. Awaiting: trial po challenge to attempt dc and follow up. 10:54 Special discussion: I have referred the patient to see his PCP for further evaluation snw of high blood pressure. Based on the history and exam findings, there is no indication for further emergent testing or inpatient evaluation. I discussed with the patient/guardian the need to see the primary care provider for further evaluation of the symptoms. 11:34 Physician consultation: Karolina Reeder MD was called at 11:34, was contacted at 11:34, snw regarding admission, to the medical/surgical unit. would like further tests performed, CT scan. 11:34 ED course: pt states she is too scared to go home with the recurrent pain. Declines snw trial at home. Dr. Reeder contacted for admission. 07/24 05:52 Order name: Basic Metabolic Panel; Complete Time: 06:33 ed1 07/24 05:52 Order name: CBC with Diff; Complete Time: 06:33 ed1 07/24 05:52 Order name: Creatinine for Radiology; Complete Time: 06:33 ed1 07/24 05:52 Order name: Hepatic Function; Complete Time: 06:33 ed1 07/24 05:52 Order name: Lipase; Complete Time: 06:33 ed1 07/24 06:49 Order name: Urine Dipstick--Ancillary (enter results); Complete Time: 08:38 eb 07/24 06:49 Order name: Urine Culture eb 07/24 06:49 Order name: Urine Microscopic Only; Complete Time: 08:21 eb 07/24 11:32 Order name: CT Abd/Pelvis - W/Contrast; Complete Time: 12:35 snw 07/24 05:52 Order name: IV Saline Lock; Complete Time: 06:01 ed1 07/24 05:52 Order name: Labs collected and sent; Complete Time: 06:01 ed1 07/24 08:59 Order name: Diet Clear Liquid; Complete Time: 08:59 snw Administered Medications: 06:39 Not Given (Physician Discretion): NS 0.9% 1000 ml IV at 125 ml/hr continuous ed1 06:58 Drug: NS 0.9% 1000 ml Route: IV; Rate: 1 bolus; Site: left wrist; ed1 06:58 Drug: NS 0.9% 1000 ml Route: IV; Rate: 1 bolus; Site: left wrist; ed1 08:25 Follow up: IV Status: Completed infusion; IV Intake: 1000ml em 06:58 Drug: fentaNYL (PF) 50 mcg Route: IVP; Site: left wrist; ed1 07:30 Follow up: Response: No adverse reaction; Pain is decreased em 06:59 Drug: Zofran 4 mg Route: IVP; Site: left wrist; ed1 07:30 Follow up: Response: No adverse reaction; Nausea is decreased em 08:44 Drug: Rocephin 1 grams Route: IV; Rate: calculated rate; Site: left forearm; ss 09:10 Follow up: Response: No adverse reaction; IV Status: Completed infusion; IV Intake: 10mlem 08:57 Not Given (Patient Refused): morphine 4 mg IM once em 09:12 Drug: Zofran 4 mg Route: IVP; Site: left forearm; em 11:42 Follow up: Response: No adverse reaction; Nausea is decreased em 09:13 Drug: fentaNYL (PF) 50 mcg Route: IM; Site: right deltoid; em 11:43 Follow up: Response: No adverse reaction; Pain is decreased em 11:42 Drug: fentaNYL (PF) 50 mcg Route: IM; Site: left deltoid; em Disposition: 07/24/18 11:59 Hospitalization ordered by Karolina Reeder for Observation. Preliminary diagnosis are Acute pancreatitis, Dehydration, Urinary tract infection, site not specified. - Bed requested for Telemetry/MedSurg (observation). - Status is Observation. ss - Condition is Stable. - Problem is an acute exacerbation. - Symptoms are unchanged. UTI on Admission? Yes Signatures: Dispatcher [employer] EDTX Reny Heller RN RN dw Marianna Abdi, ENVIRONMENTAL SERVICES LEAD-C ENVIRONMENTAL SERVICES LEAD-Csnw Lobo Rajput, TRANSPORTATION AIDE TRANSPORTATION AIDE em Jody Aguilera RN RN ss Sharon Mares RN RN ed1 Corrections: (The following items were deleted from the chart) 11:34 10:46 07/24/2018 10:46 Discharged to Home. Impression: Acute pancreatitis, unspecified; snw Urinary tract infection, site not specified. Condition is Stable. Forms are Medication Reconciliation Form, Thank You Letter, Antibiotic Education, Prescription Opioid Use. Follow up: Private Physician; When: 2 - 3 days; Reason: Recheck today's complaints, Continuance of care, Re-evaluation by your physician. Follow up: Emergency Department; When: As needed; Reason: Worsening of condition. snw 13:43 11:59 Hospitalization Ordered by Karolina Reeder MD for Observation. Preliminary dw diagnosis is Acute pancreatitis; Dehydration; Urinary tract infection, site not specified. Bed requested for Telemetry/MedSurg (observation). Status is Observation. Condition is Stable. Problem is an acute exacerbation. Symptoms are unchanged. UTI on Admission? Yes. snw 13:45 13:43 07/24/2018 11:59 Hospitalization Ordered by Karolina Reeder MD for Observation. Preliminary diagnosis is Acute pancreatitis; Dehydration; Urinary tract infection, site not specified. Bed requested for Telemetry/MedSurg (observation). Status is Observation. Condition is Stable. Problem is an acute exacerbation. Symptoms are unchanged. UTI on Admission? Yes. 14:34 13:45 07/24/2018 11:59 Hospitalization Ordered by Karolina Reeder MD for Observation. ss Preliminary diagnosis is Acute pancreatitis; Dehydration; Urinary tract infection, site not specified. Bed requested for Telemetry/MedSurg (observation). Status is Observation. Condition is Stable. Problem is an acute exacerbation. Symptoms are unchanged. UTI on Admission? Yes. 14:43 14:34 07/24/2018 11:59 Hospitalization Ordered by Karolina Reeder MD for Observation. ss Preliminary diagnosis is Acute pancreatitis; Dehydration; Urinary tract infection, site not specified. Bed requested for Telemetry/MedSurg (observation). Status is Observation. Condition is Stable. Problem is an acute exacerbation. Symptoms are unchanged. UTI on Admission? Yes. ss
--- NOTE | 2018-07-24 10:47 | ER ---
Nurse's Notes [facility] Name: Katie Velasquez Age: 57 yrs Sex: Female : 1960 Arrival Date: 07/24/2018 Time: 05:30 Bed 18 Private MD: Diagnosis: Acute pancreatitis;Dehydration;Urinary tract infection, site not specified Presentation: 07/24 05:43 Presenting complaint: Patient states: Abdominal pain that started on Thursday. ed1 Transition of care: patient was not received from another setting of care. Onset of symptoms was July 21, 2018. Risk Assessment: Do you want to hurt yourself or someone else? Patient reports no desire to harm self or others. Initial Sepsis Screen: Does the patient meet any 2 criteria? No. Patient's initial sepsis screen is negative. Does the patient have a suspected source of infection? No. Patient's initial sepsis screen is negative. Care prior to arrival: None. 05:43 Method Of Arrival: Ambulatory ed1 05:43 Acuity: COTY 3 ed1 Triage Assessment: 05:46 General: Appears in no apparent distress. Behavior is calm, cooperative. Pain: ed1 Complains of pain in right upper quadrant and left upper quadrant Pain currently is 7 out of 10 on a pain scale. Quality of pain is described as aching, crampy, Pain began 2-3 days ago. Is continuous. EENT: No signs and/or symptoms were reported regarding the EENT system. Neuro: Level of Consciousness is awake, alert, obeys commands, Oriented to person, place, time, situation. Cardiovascular: Heart tones S1 S2 present Chest pain is denied. Respiratory: Airway is patent Respiratory effort is even, unlabored, Respiratory pattern is regular, symmetrical, Breath sounds are clear bilaterally. GI: Abdomen is distended, Bowel sounds present X 4 quads. Abd is soft and non tender X 4 quads. Reports nausea, vomiting, Patient currently denies diarrhea. : No signs and/or symptoms were reported regarding the genitourinary system. Derm: Skin is intact, is healthy with good turgor, Skin is dry, Skin is normal, Skin temperature is warm. Musculoskeletal: Circulation, motion, and sensation intact. Range of motion: intact in all extremities. 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 - Social history:: Smoking status: Patient uses tobacco products, smokes one-half pack cigarettes per day. - Ebola Screening: : Patient negative for fever greater than or equal to 101.5 degrees Fahrenheit, and additional compatible Ebola Virus Disease symptoms Patient denies exposure to infectious person Patient denies travel to an Ebola-affected area in the 21 days before illness onset No symptoms or risks identified at this time. Screenin:49 Abuse screen: Denies threats or abuse. Denies injuries from another. Nutritional ed1 screening: No deficits noted. Tuberculosis screening: No symptoms or risk factors identified. Fall Risk None identified. Assessment: 05:49 General: See triage assessment. ed1 07:00 Reassessment: Patient appears in no apparent distress at this time. Patient and/or em family updated on plan of care and expected duration. Pain level reassessed. Patient is alert, oriented x 3, equal unlabored respirations, skin warm/dry/pink. Patient states feeling better. Patient states symptoms have improved. 08:27 Reassessment: reports pain is coming back, rates 10/10, provider notified, new em medication orders received. 08:55 Reassessment: Patient appears in no apparent distress at this time. Patient and/or em family updated on plan of care and expected duration. Pain level reassessed. Patient is alert, oriented x 3, equal unlabored respirations, skin warm/dry/pink. reports she has heard bad reactions to morphine, reports she is not allergic to the medication, request she receive fentanyl, provider notified, new medication orders received. 10:11 Reassessment: Patient appears in no apparent distress at this time. Patient and/or em family updated on plan of care and expected duration. Pain level reassessed. Patient is alert, oriented x 3, equal unlabored respirations, skin warm/dry/pink. was only able to tolerate several spoon fulls of broth, reports "nausea comes and goes". 11:30 Reassessment: Patient appears in no apparent distress at this time. Patient and/or em family updated on plan of care and expected duration. Pain level reassessed. Patient is alert, oriented x 3, equal unlabored respirations, skin warm/dry/pink. 12:45 Reassessment: Patient appears in no apparent distress at this time. Patient and/or em family updated on plan of care and expected duration. Pain level reassessed. Patient is alert, oriented x 3, equal unlabored respirations, skin warm/dry/pink. Patient states feeling better. Patient states symptoms have improved. 14:08 Reassessment: Attempted to call report to receiving nurse. Charge nurse MARÍA Lackey reports that nurse will call back shortly to receive report. 14:33 Reassessment: report called to MARÍA Tarango. Vital Signs: 05:46 BP 154 / 89; Pulse 79; Resp 16; Temp 98.1; Pulse Ox 99% on R/A; Weight 64.41 kg; Height ed1 5 ft. 4 in. (162.56 cm); Pain 7/10; 07:30 BP 171 / 78; Pulse 65; Resp 16; Pulse Ox 99% on R/A; Pain 8/10; em 08:30 BP 158 / 77; Pulse 69; Resp 18; Pulse Ox 99% on R/A; Pain 10/10; em 09:26 BP 156 / 79; Pulse 64; Resp 16; Pulse Ox 99% on R/A; em 11:00 BP 148 / 81; Pulse 71; Resp 18; Pulse Ox 99% on R/A; em 12:45 BP 161 / 81; Pulse 64; Resp 16; Pulse Ox 95% on R/A; Pain 4/10; em 05:46 Body Mass Index 24.37 (64.41 kg, 162.56 cm) ed1 ED Course: 05:30 Patient arrived in ED. do 05:40 Sharon Mares, RN is Primary Nurse. ed1 05:45 Triage completed. ed1 05:46 Arm band placed on. ed1 05:49 Patient has correct armband on for positive identification. Placed in gown. Bed in low ed1 position. Call light in reach. Pulse ox on. NIBP on. 06:01 Initial lab(s) drawn, by ED staff, sent to lab. Inserted saline lock: 22 gauge in left ed1 wrist, using aseptic technique. Blood collected. 06:12 Marianna Abdi FNP-C [facility]. snw 06:12 Jude Segura MD is Attending Physician. snw 06:56 Urine Culture Sent. eb 06:56 Urine Microscopic Only Sent. eb 07:00 Primary Nurse role handed off by Sharon Mares RN ed1 07:05 Lobo Rajput LVN is Primary Nurse. em 11:58 Karolina Reeder MD is Hospitalizing Provider. snw 12:07 CT completed. Patient tolerated procedure well. Patient moved back from CT. bq 12:10 CT Abd/Pelvis - W/Contrast In Process Unspecified. EDMS 14:33 No provider procedures requiring assistance completed. Patient admitted, IV remains in ss place. 14:34 Primary Nurse role handed off by Lobo Rajput LVN ss Administered Medications: 06:39 Not Given (Physician Discretion): NS 0.9% 1000 ml IV at 125 ml/hr continuous ed1 06:58 Drug: NS 0.9% 1000 ml Route: IV; Rate: 1 bolus; Site: left wrist; ed1 06:58 Drug: NS 0.9% 1000 ml Route: IV; Rate: 1 bolus; Site: left wrist; ed1 08:25 Follow up: IV Status: Completed infusion; IV Intake: 1000ml em 06:58 Drug: fentaNYL (PF) 50 mcg Route: IVP; Site: left wrist; ed1 07:30 Follow up: Response: No adverse reaction; Pain is decreased em 06:59 Drug: Zofran 4 mg Route: IVP; Site: left wrist; ed1 07:30 Follow up: Response: No adverse reaction; Nausea is decreased em 08:44 Drug: Rocephin 1 grams Route: IV; Rate: calculated rate; Site: left forearm; ss 09:10 Follow up: Response: No adverse reaction; IV Status: Completed infusion; IV Intake: 10mlem 08:57 Not Given (Patient Refused): morphine 4 mg IM once em 09:12 Drug: Zofran 4 mg Route: IVP; Site: left forearm; em 11:42 Follow up: Response: No adverse reaction; Nausea is decreased em 09:13 Drug: fentaNYL (PF) 50 mcg Route: IM; Site: right deltoid; em 11:43 Follow up: Response: No adverse reaction; Pain is decreased em 11:42 Drug: fentaNYL (PF) 50 mcg Route: IM; Site: left deltoid; em Intake: 08:25 IV: 1000ml; Total: 1000ml. em 09:10 IV: 10ml; Total: 1010ml. em Outcome: 10:46 Discharge ordered by MD. snw 11:59 Decision to Hospitalize by Provider. snw 14:33 Admitted to Med/surg accompanied by tech, via wheelchair, room 216, with chart, Report ss called to MARÍA Tarango 14:33 Condition: good 14:33 Instructed on the need for admit. 14:34 Patient left the ED. ss 14:43 Patient left the ED. ss Signatures: Dispatcher [employer] EDMS Marianna Abdi, ASSISTANT GROCERY-C ASSISTANT GROCERY-Csnw Kathi Avitia Edgar, VALVE PIPE IRRIGATOR VALVE PIPE IRRIGATOR em Jody Aguilera, MARÍA RN ss Sharon Mares RN RN ed1 Sudha Matta Elizabeth eb Corrections: (The following items were deleted from the chart) 07:41 07:40 Admitted to Tele accompanied by tech, via stretcher, room 210, Report called to pratibha Tarango RN em 07:41 07:40 Condition: good em em 07:41 07:40 Discharge instructions given to patient, Instructed on the need for admit, em em 07:42 07:40 No provider procedures requiring assistance completed. em em 07:42 07:40 Patient admitted, IV remains in place. em em
--- NOTE | 2018-07-24 12:30 | RAD REPORT ---
EXAM DESCRIPTION: CT - Abdomen Pelvis W Contrast - 07/24/2018 12:09 pm CLINICAL HISTORY: Abdominal pain. COMPARISON: December 2017 TECHNIQUE: Computed axial tomography of the abdomen and pelvis was obtained. 100 cc Isovue-300 is ad ministered intravenously. Oral contrast was given. All CT scans are performed using dose optimization technique as appropriate and may include automated exposure control or mA/KV adjustment according to patient size. FINDINGS: Small hepatic cyst Spleen, adrenals and kidneys appear unremarkable. Pancreatic head is mildly inhomogeneous. Mild stranding within the adjacent fat. The wall of the laura cent duodenum and distal stomach is thickened. The appendix is normal caliber. There is no evidence of diverticulitis Mild anterior subluxation of L5 on S1. Spondylolysis L5 IMPRESSION: Mild pancreatitis
[2018-07-24] MEDS ORDERED: ONDANSETRON 4 MG/2 ML VIAL IV PRN (14:16)
--- NOTE | 2018-07-24 14:16 | P.HP ---
Certification for Inpatient Patient admitted to: Observation With expected LOS: <2 Midnights Patient will require the following post-hospital care: None Practitioner: I am a practitioner with admitting privileges, knowledge of patient current condition, hospital course, and medical plan of care. Services: Services provided to patient in accordance with Admission requirements found in Title 42 Section 412.3 of the Code of Federal Regulations Patient History Date of Service: 07/24/18 Reason for admission: Pain History of Present Illness: This is a 57-year-old female with significant past medical history of alcohol abuse and chronic pancreatitis who presented to the ED complaining of having abdominal pain nausea and vomiting. Patient stated that her nausea vomiting and abdominal pain started on Thursday night and got progressively worse and thus she decided to come to the ER. Patient has previous episodes of similar pain and was admitted to the hospital for acute pancreatitis secondary to alcohol. Patient does admit to drinking pink Mascato on thursday night. She also admits to eating fried Food. Patient was initially going to be discharged from the ER however stated that she is not able to tolerate anything orally and her abdominal pain is getting worse and thus was admitted to the hospital for acute pancreatitis. Allergies aspirin Allergy (Verified 12/12/17 20:19) Rash bee sting Allergy (Intermediate, Uncoded 12/12/17 22:47) Hives Bees Allergy (Intermediate, Uncoded 12/12/17 22:47) Hives unknown muscle relaxer Allergy (Uncoded 12/12/17 22:47) Rash Home Medications: Cyanocobalamin (Vitamin B-12) [B-12] 1,000 mcg PO DAILY 07/24/18 Thiamine HCl [Vitamin B-1] 100 mg PO DAILY 07/24/18 - Past Medical/Surgical History Diabetic: No -: Alcohol use -: Pancreatitis - Social History Alcohol use: Yes CD- Drugs: No Caffeine use: Yes Review of Systems 10-point ROS is otherwise unremarkable Physical Examination - Physical Exam General: Alert, In no apparent distress HEENT: Atraumatic, PERRLA, Mucous membr. moist/pink, EOMI, Sclerae nonicteric Neck: Supple, 2+ carotid pulse no bruit, No LAD, Without JVD or thyroid abnormality Respiratory: Clear to auscultation bilaterally, Normal air movement Cardiovascular: Regular rate/rhythm, Normal S1 S2 Gastrointestinal: Normal bowel sounds, Tenderness (Generalized tender) Musculoskeletal: No tenderness Integumentary: No rashes Neurological: Normal gait, Normal speech, Normal strength at 5/5 x4 extr, Normal tone, Normal affect Lymphatics: No axilla or inguinal lymphadenopathy - Studies Laboratory Data (last 24 hrs) 07/24/18 05:53: Creatinine 0.67 07/24/18 05:53: WBC 8.7, Hgb 15.3 H, Hct 43.7, Plt Count 215 07/24/18 05:53: Sodium 138, Potassium 3.3 L, BUN 9, Creatinine 0.70, Glucose 90 , Total Bilirubin 0.7, AST 19, ALT 19, Alkaline Phosphatase 72, Lipase 3023 H Assessment and Plan - Problems (Diagnosis) (1) Acute pancreatitis Onset Date: 12/16/16 Current Visit: No Status: Acute Plan: Alcohol-induced acute pancreatitis. -lipase over 3000 in the ER -patient with nausea and vomiting. Abdominal CT with mild pancreatitis along with possible thickening of the duodenal and gastric area concerning for colitis -IV fluids, pain management, currently the liquid diet -will follow up for improvement Qualifiers: Pancreatitis type: alcohol induced Acute pancreatitis complication: unspecified Qualified Code(s): K85.20 - Alcohol induced acute pancreatitis without necrosis or infection (2) Colitis Current Visit: Yes Status: Acute Plan: Abdominal CT with possible thickening of the duodenal in the gastric area concerning for colitis -the CBC negative however elevated neutrophils -denies diarrhea at this time. -started on IV Cipro and Flagyl (3) Alcohol abuse Onset Date: 12/16/16 Current Visit: No Status: Acute Plan: Educated extensively regarding alcohol abuse - Plan Patient will be admitted to medical-surgical floor for for treatment of acute pancreatitis and possible colitis. Patient will be started on IV fluids, pain management, IV Zofran for nausea, IV Cipro and Flagyl for colitis. Will monitor patient closely for next 24-48 hr for improvement. Patient will be on clear liquid diet at this time. Discharge Plan: Home Plan to discharge in: 48 Hours - Advance Directives Does patient have a Living Will: No Does patient have a Durable POA for Healthcare: No - Code Status/Comfort Care Code Status Assessed: Yes Critical Care: No
[2018-07-24 15:11] VITALS: BMI 24.3
[2018-07-24] MEDS: METRONIDAZOLE 500mg IVPB 500 MG/100 ML BAG IV SCH (17:38)
[2018-07-24] MEDS: NA CHLORIDE 0.9% 1,000 ML IV SCH (17:38)
[2018-07-24] MEDS: CIPROFLOXACIN 400mg IV 400 MG/200 ML BAG IV SCH (17:39)
[2018-07-24] MEDS: MORPHINE 2 MG/ML SYR IV PRN (18:53)
[2018-07-24] MEDS ORDERED: FOLIC ACID 1 MG, MULTIVITAMINS INJ 10 ML in NA CHLORIDE 0.9% 1,000 ML IV SCH (20:00)
[2018-07-24 22:13] VITALS: O2SAT 97
[2018-07-25] MEDS: NA CHLORIDE 0.9% 1,000 ML IV SCH
[2018-07-25] MEDS: METRONIDAZOLE 500mg IVPB 500 MG/100 ML BAG IV SCH ×2 (00:03→08:03)
[2018-07-25] MEDS: MORPHINE 2 MG/ML SYR IV PRN (03:52)
[2018-07-25] MEDS: CIPROFLOXACIN 400mg IV 400 MG/200 ML BAG IV SCH (05:26)
[2018-07-25 06:02] LABS: Absolute Lymphocytes (CBC) 1.5 K/uL (0.7-4.9); Absolute Monocytes 0.6 K/uL (0.1-1.3); Basophils % 0.5 % (0-1.3); Eosinophils % 1.3 % (0-4.4); Hematocrit 38.4 % (36.0-45.0); Lymphocytes % 20.9 % (15.3-44.8); MPV 8.1 fL (7.6-11.3); Monocytes % 8.6 % (3.3-12.3); RBC Red Blood Cell Count 3.85 M/uL (3.86-4.86)
[2018-07-25 06:12] LABS: ALT/SGPT 14 U/L (12-78); AST/SGOT 15 U/L (15-37); Albumin 2.9 g/dL (3.4-5.0); Alkaline Phosphatase 50 U/L (45-117); BUN Blood Urea Nitrogen 5 mg/dL (7-18); Bicarbonate 25 mmol/L (21-32); Bilirubin Total 0.4 mg/dL (0.2-1.0); Glucose Level 82 mg/dL (74-106); Magnesium 1.6 mg/dL (1.8-2.4); Phosphorus 2.4 mg/dL (2.5-4.9); Potassium 3.3 mmol/L (3.5-5.1); Protein, Total 6.2 g/dL (6.4-8.2); Sodium Level 141 mmol/L (136-145)
[2018-07-25] MEDS ORDERED: PANTOPRAZOLE 40MG TABLET PO SCH (06:30)
[2018-07-25] MEDS ORDERED: MAGNESIUM SULFATE 1 gm IVPB 1 GM/100 ML BAG IV ONE (07:00)
[2018-07-25] MEDS ORDERED: CYANOCOBALAMIN 1,000 MCG TAB PO SCH (09:00)
[2018-07-25] MEDS ORDERED: POTASSIUM CL SA 10 MEQ TAB PO ONE (09:00)
[2018-07-25] MEDS ORDERED: THIAMINE HCL 100 MG TABLET PO SCH (09:00)
[2018-07-25] MEDS ORDERED: POTASSIUM PHOS IN 0.9 % NACL 15 MMOL/250 ML BAG IV ONE (09:00)
[2018-07-25 09:42] VITALS: BP 145/67; TEMP 97.7
--- NOTE | 2018-07-25 11:50 | P.SSS ---
Patient History Date of Service: 07/25/18 Reason for admission: Pain History of Present Illness: This is a 57-year-old female with significant past medical history of alcohol abuse and chronic pancreatitis who presented to the ED complaining of having abdominal pain nausea and vomiting. Patient stated that her nausea vomiting and abdominal pain started on Thursday night and got progressively worse and thus she decided to come to the ER. Patient has previous episodes of similar pain and was admitted to the hospital for acute pancreatitis secondary to alcohol. Patient does admit to drinking pink Mascato on thursday night. She also admits to eating fried Food. Patient was initially going to be discharged from the ER however stated that she is not able to tolerate anything orally and her abdominal pain is getting worse and thus was admitted to the hospital for acute pancreatitis. Allergies aspirin Allergy (Verified 12/12/17 20:19) Rash bee sting Allergy (Intermediate, Uncoded 12/12/17 22:47) Hives Bees Allergy (Intermediate, Uncoded 12/12/17 22:47) Hives unknown muscle relaxer Allergy (Uncoded 12/12/17 22:47) Rash Home Medications: Cyanocobalamin (Vitamin B-12) [B-12] 1,000 mcg PO DAILY 07/24/18 Thiamine HCl [Vitamin B-1*] 100 mg PO DAILY 07/24/18 - Past Medical/Surgical History Has patient received pneumonia vaccine in the past: No Diabetic: No -: Alcohol use -: Pancreatitis - Social History Smoking Status: Current every day smoker Alcohol use: Yes CD- Drugs: No Caffeine use: Yes Place of Residence: Home Review of Systems 10-point ROS is otherwise unremarkable Physical Examination - Vital Signs Temperature: 97.7 F Blood Pressure: 145/67 Pulse: 74 Respirations: 16 Pulse Ox (%): 99 - Physical Exam General: Alert, In no apparent distress HEENT: Atraumatic, PERRLA, Mucous membr. moist/pink, EOMI, Sclerae nonicteric Neck: Supple, 2+ carotid pulse no bruit, No LAD, Without JVD or thyroid abnormality Respiratory: Clear to auscultation bilaterally, Normal air movement Cardiovascular: Regular rate/rhythm, Normal S1 S2 Gastrointestinal: Normal bowel sounds, No tenderness Musculoskeletal: No tenderness Integumentary: No rashes Neurological: Normal gait, Normal speech, Normal strength at 5/5 x4 extr, Normal tone, Normal affect Lymphatics: No axilla or inguinal lymphadenopathy - Studies Laboratory Data (last 24 hrs) 07/25/18 05:32: Sodium 141, Potassium 3.3 L, BUN 5 L, Creatinine 0.52 L, Glucose 82, Phosphorus 2.4 L, Magnesium 1.6 L, Total Bilirubin 0.4, AST 15, ALT 14, Alkaline Phosphatase 50 07/25/18 05:32: WBC 7.3 D, Hgb 13.4, Hct 38.4, Plt Count 196 - Diagnosis (Problem(s)) (1) Acute pancreatitis Onset Date: 12/16/16 Current Visit: No Status: Acute Qualifiers: Pancreatitis type: alcohol induced Acute pancreatitis complication: unspecified Qualified Code(s): K85.20 - Alcohol induced acute pancreatitis without necrosis or infection (2) Colitis Current Visit: Yes Status: Acute (3) Alcohol abuse Onset Date: 12/16/16 Current Visit: No Status: Acute Treatment Summary: Overall during the hospital stay patient main stable Patient was initially admitted to the hospital for acute pancreatitis secondary to fried food and alcohol. Patient was educated extensively on the need of alcohol abstinence. Was started on IV fluids here. Abdominal CT was done which was concerning for mild colitis as well this patient was also started on IV antibiotics. Patient had marked improvement in her symptoms after admission and this patient was switched over to p.o. and was advanced to a clear liquid diet. Patient had again marked improvement on clear liquid diet and thus was advanced to soft food and then was discharged home under stable condition was given a prescription for Cipro and Flagyl for colitis. Patient was also asked to follow up with primary care provider in about 1-2 days post discharge along with the GI doctor. Patient also educated extensively on alcohol abstinence. Patient demonstrate understanding and thus was discharged home under stable condition - Disposition Disposition: ROUTINE DISCHARGE Condition: GOOD Patient Discharge Instructions: Please f.u with PCP and GI doc 1 to 2 week post discharge. New medication. Ciprofloxacin 500mg Daily. Flagyl 500mg q8h daily Diet: Regular Activity: Ad lorena
== END 2018-07-25 14:00 | disposition home or self-care (01) | DRG 440 ==
LOC: ER 05:28 → ERHOLD 13:15 → 2ND 14:36 → OBSVTOIN 07-25 08:04
PROVIDERS: ADMIT Family Medicine; ATTEND Family Medicine
DX: K85.20 Alcohol induced acute pancreatitis without necrosis or infection (principal); F10.10 Alcohol abuse, uncomplicated; K52.89 Other specified noninfective gastroenteritis and colitis; F17.200 Nicotine dependence, unspecified, uncomplicated; K86.0 Alcohol-induced chronic pancreatitis
CPT/HCPCS: 36415; 74177; 80048; 80053; 80076; 81003; 81015; 83690; 83735; 84100; 85025; 87086; 87088; 96372; 99285; G0378; J0696; J0744; J2270; J2405; J3010; J3475; J7030; Q9967

== ENCOUNTER 2019-02-10 20:17 | Emergency (ER) | payer OTHER ==
[2019-02-10] MEDS ORDERED: NA CHLORIDE 0.9% 1,000 ML ONE (20:37)
[2019-02-10 21:01] LABS: Absolute Lymphocytes (CBC) 2.3 K/uL (0.7-4.9); Basophils % 1.4 % (0-1.3); Hematocrit 45.5 % (36.0-45.0); Lymphocytes % 26.2 % (15.3-44.8); MPV 7.5 fL (7.6-11.3); RBC Red Blood Cell Count 4.44 M/uL (3.86-4.86)
[2019-02-10 21:18] LABS: Bilirubin Direct 0.1 mg/dL (0-0.2); Bilirubin Total 0.4 mg/dL (0.2-1.0); Potassium 3.4 mmol/L (3.5-5.1); Protein, Total 8.5 g/dL (6.4-8.2)
[2019-02-10] MEDS ORDERED: THIAMINE 200 MG/2 ML INJ ONE (21:22)
--- NOTE | 2019-02-10 23:06 | ER ---
Nurse's Notes [facility] Name: Katie Velasquez Age: 58 yrs Sex: Female : 1960 Arrival Date: 02/10/2019 Time: 20:22 Bed 8 Private MD: Diagnosis: Acute upper respiratory infection, unspecified;Volume depletion Presentation: 02/10 20:26 Presenting complaint: Patient states: "I have been feeling like crap for 3 days. I have jd3 had full body aches and have been vomiting and diarrhea. I have also been having on and off fever.". Transition of care: patient was not received from another setting of care. Onset of symptoms was February 08, 2019. Risk Assessment: Do you want to hurt yourself or someone else? Patient reports no desire to harm self or others. Initial Sepsis Screen: Does the patient meet any 2 criteria? HR > 90 bpm. Yes Does the patient have a suspected source of infection? No. Patient's initial sepsis screen is negative. Care prior to arrival: None. 20:26 Method Of Arrival: Ambulatory jd3 20:26 Acuity: COTY 3 jd3 Historical: - Allergies: 20:29 Aspirin; jd3 20:29 Bees; jd3 20:29 unknown muscle relaxer; jd3 - Home Meds: 20:29 None [Active]; jd3 - PMHx: 20:29 Pancreatitis; jd3 - PSHx: 20:29 None; jd3 - Immunization history:: Adult Immunizations up to date, Flu vaccine is up to date. - Social history:: Smoking status: Patient uses tobacco products, smokes one-half pack cigarettes per day. - Ebola Screening: : Patient negative for fever greater than or equal to 101.5 degrees Fahrenheit, and additional compatible Ebola Virus Disease symptoms. Screenin:51 Abuse screen: Denies threats or abuse. Denies injuries from another. Nutritional rr5 screening: No deficits noted. Tuberculosis screening: No symptoms or risk factors identified. Fall Risk IV access (20 points). Total Rojas Fall Scale indicates No Risk (0-24 pts). Assessment: 21:00 General: Appears in no apparent distress. comfortable, Behavior is calm, cooperative, rr5 appropriate for age, Reports fever for she had a few drinks (wine). Pain: Complains of pain in epigastric area Pain radiates to right upper quadrant Pain currently is 3 out of 10 on a pain scale. Quality of pain is described as aching, Pain began gradually, Is intermittent. Neuro: Level of Consciousness is awake, alert, obeys commands, Oriented to person, place, time, situation, Appropriate for age. Cardiovascular: Capillary refill < 3 seconds Patient's skin is warm and dry. Respiratory: Airway is patent Respiratory effort is even, unlabored, Respiratory pattern is regular, symmetrical. GI: Abdomen is round non-distended, Reports upper abdominal pain, diarrhea, nausea, vomiting. : No signs and/or symptoms were reported regarding the genitourinary system. EENT: No signs and/or symptoms were reported regarding the EENT system. Derm: Skin is intact, Skin temperature is warm. Musculoskeletal: Circulation, motion, and sensation intact. Capillary refill < 3 seconds. 22:00 Reassessment: Patient appears in no apparent distress at this time. Patient and/or rr5 family updated on plan of care and expected duration. Pain level reassessed. Patient is alert, oriented x 3, equal unlabored respirations, skin warm/dry/pink. awaiting for result. 23:18 Reassessment: Patient appears in no apparent distress at this time. Patient and/or rr5 family updated on plan of care and expected duration. Pain level reassessed. Patient is alert, oriented x 3, equal unlabored respirations, skin warm/dry/pink. discharge instruction given and explained without complaints made, verbalized understanding. Patient states feeling better. Patient states symptoms have improved. Vital Signs: 20:29 BP 149 / 81; Pulse 101; Resp 18 S; Temp 97.9(O); Pulse Ox 98% on R/A; Weight 62.6 kg jd3 (R); Height 64 in. (162.56 cm) (R); Pain 5/10; 21:17 BP 142 / 78; Pulse 86; Resp 17; Pulse Ox 99% ; rr5 22:20 BP 140 / 82; Pulse 80; Resp 16; Pulse Ox 99% ; rr5 23:18 BP 141 / 78; Pulse 75; Resp 17; Temp 98; Pulse Ox 99% ; rr5 20:29 Body Mass Index 23.69 (62.60 kg, 162.56 cm) [facility] ED Course: 20:22 Patient arrived in ED. es 20:28 Triage completed. jd3 20:30 Arm band placed on. jd3 20:30 Patient has correct armband on for positive identification. Placed in gown. Bed in low rr5 position. Call light in reach. Pulse ox on. NIBP on. 20:32 Marianna Abdi FNP-C is PHCP. snw 20:32 Marc Javed MD is Attending Physician. snw 20:34 Finn Dior, RN is Primary Nurse. rr5 20:45 Inserted saline lock: 22 gauge in right forearm, using aseptic technique. ,using rr5 aseptic technique. inserted by juan Blood collected. 20:46 Flu and/or RSV swab sent to lab. rr5 23:19 No provider procedures requiring assistance completed. IV discontinued, intact, rr5 bleeding controlled, No redness/swelling at site. Pressure dressing applied. Administered Medications: 20:50 Drug: NS 0.9% 1000 ml Route: IV; Rate: 1 bolus; Site: right forearm; rr5 22:00 Follow up: Response: No adverse reaction; IV Status: Completed infusion; IV Intake: rr5 1000ml 21:23 Drug: Thiamine 100 mg Route: IV; Rate: calculated rate; Site: right forearm; rr5 22:27 Follow up: Response: No adverse reaction; IV Status: Completed infusion rr5 Intake: 22:00 IV: 1000ml; Total: 1000ml. rr5 Outcome: 23:06 Discharge ordered by . snw 23:19 Discharged to home ambulatory. rr5 23:19 Condition: stable 23:19 Discharge instructions given to patient, Instructed on discharge instructions, follow up and referral plans. medication usage, Demonstrated understanding of instructions, follow-up care, medications, Prescriptions given X 2. 23:20 Patient left the ED. rr5 Signatures: Marianna Abdi FNP-C [employer] Hiwot Duque Jonathon, RN RN jFinn Azar, MARÍA RN rr5
--- NOTE | 2019-02-10 23:07 | EDPHYS ---
Physician Documentation [facility] Name: Katie Velasquez Age: 58 yrs Sex: Female : 1960 Arrival Date: 02/10/2019 Time: 20:22 Bed 8 Private MD: ED Physician Marc Javed HPI: 02/10 21:48 This 58 yrs old Female presents to ER via Ambulatory with complaints of snw Vomiting/Diarrhea, Fever. 21:48 The patient presents to the emergency department with nausea, vomiting. Onset: The snw symptoms/episode began/occurred 3 day(s) ago, and became persistent. Possible causes: ETOH. The symptoms are aggravated by nothing. Associated signs and symptoms: Pertinent positives: anorexia, nausea, vomiting, intermittent fever. Severity of symptoms: in the emergency department the symptoms are unchanged. The patient has experienced similar episodes in the past. It is unknown whether or not the patient has recently seen a physician, sees [facility]. Historical: - Allergies: 20:29 Aspirin; jd3 20:29 Bees; jd3 20:29 unknown muscle relaxer; jd3 - Home Meds: 20:29 None [Active]; jd3 - PMHx: 20:29 Pancreatitis; jd3 - PSHx: 20:29 None; jd3 - Immunization history:: Adult Immunizations up to date, Flu vaccine is up to date. - Social history:: Smoking status: Patient uses tobacco products, smokes one-half pack cigarettes per day. - Ebola Screening: : Patient negative for fever greater than or equal to 101.5 degrees Fahrenheit, and additional compatible Ebola Virus Disease symptoms. ROS: 21:45 Constitutional: Negative for chills and weight loss, + fatigue, + "over did it last snw night watching the [employer]". Pt states she drank too much wine Eyes: Negative for injury, pain, redness, and discharge, ENT: Negative for injury, pain, and discharge, Neck: Negative for injury, pain, and swelling, Cardiovascular: Negative for chest pain, palpitations, and edema, Respiratory: Negative for shortness of breath, cough, wheezing, and pleuritic chest pain, Back: Negative for injury and pain, : Negative for injury, bleeding, discharge, and swelling, MS/Extremity: Negative for injury and deformity, Skin: Negative for injury, rash, and discoloration, Neuro: Negative for headache, weakness, numbness, tingling, and seizure. Exam: 21:44 Head/Face: Normocephalic, atraumatic. Eyes: Pupils equal round and reactive to light, snw extra-ocular motions intact. Lids and lashes normal. Conjunctiva and sclera are non-icteric and not injected. Cornea within normal limits. Periorbital areas with no swelling, redness, or edema. ENT: Nares patent. No nasal discharge, no septal abnormalities noted. Tympanic membranes are normal and external auditory canals are clear. Oropharynx with redness, swelling, or masses, exudates, or evidence of obstruction, uvula midline. bilateral upper palate with ulceration, Mucous membranes moist. Neck: Trachea midline, no thyromegaly or masses palpated, and no cervical lymphadenopathy. Supple, full range of motion without nuchal rigidity, or vertebral point tenderness. No Meningismus. Chest/axilla: Normal chest wall appearance and motion. Nontender with no deformity. No lesions are appreciated. Cardiovascular: Regular rate and rhythm with a normal S1 and S2. No gallops, murmurs, or rubs. Normal PMI, no JVD. No pulse deficits. Respiratory: Lungs have equal breath sounds bilaterally, clear to auscultation and percussion. No rales, rhonchi or wheezes noted. No increased work of breathing, no retractions or nasal flaring. Abdomen/GI: Soft, mildly tender, with normal bowel sounds. No distension or tympany. No guarding or rebound. Back: No spinal tenderness. No costovertebral tenderness. Full range of motion. Skin: Warm, dry with normal turgor. Normal color with no rashes, no lesions, and no evidence of cellulitis. MS/ Extremity: Pulses equal, no cyanosis. Neurovascular intact. Full, normal range of motion. Neuro: Awake and alert, GCS 15, oriented to person, place, time, and situation. Cranial nerves II-XII grossly intact. Motor strength 5/5 in all extremities. Sensory grossly intact. Cerebellar exam normal. Normal gait. Psych: Awake, alert, with orientation to person, place and time. Behavior, mood, and affect are within normal limits. 21:44 Constitutional: The patient appears alert, awake, anxious, listless, dry appearing Vital Signs: 20:29 BP 149 / 81; Pulse 101; Resp 18 S; Temp 97.9(O); Pulse Ox 98% on R/A; Weight 62.6 kg jd3 (R); Height 64 in. (162.56 cm) (R); Pain 5/10; 21:17 BP 142 / 78; Pulse 86; Resp 17; Pulse Ox 99% ; rr5 22:20 BP 140 / 82; Pulse 80; Resp 16; Pulse Ox 99% ; rr5 23:18 BP 141 / 78; Pulse 75; Resp 17; Temp 98; Pulse Ox 99% ; rr5 20:29 Body Mass Index 23.69 (62.60 kg, 162.56 cm) jd3 MDM: 20:33 Patient medically screened. snw 23:07 Data reviewed: vital signs, nurses notes. Data interpreted: Pulse oximetry: on room air snw is 99 %. Interpretation: normal. Counseling: I had a detailed discussion with the patient and/or guardian regarding: the historical points, exam findings, and any diagnostic results supporting the discharge/admit diagnosis, the presence of at least one elevated blood pressure reading (>120/80) during this emergency department visit, lab results, the need for outpatient follow up, to return to the emergency department if symptoms worsen or persist or if there are any questions or concerns that arise at home, smoking cessation. Special discussion: Based on the patient's Hx, exam, and Dx evaluation, there is no indication for emergent surgery or inpatient Tx. It is understood by the patient/guardian that if the Sx's persist or worsen they need to return immediately for re-evaluation. I have referred the patient to see his PCP for further evaluation of high blood pressure. Based on the history and exam findings, there is no indication for further emergent testing or inpatient evaluation. I discussed with the patient/guardian the need to see the primary care provider for further evaluation of the symptoms. I discussed with the patient/guardian the need to see the psychiatrist for further evaluation of the symptoms. 02/10 20:33 Order name: Basic Metabolic Panel; Complete Time: 21:19 snw 02/10 20:33 Order name: CBC with Diff; Complete Time: 21:10 snw 02/10 20:33 Order name: Creatinine for Radiology; Complete Time: 21:19 snw 02/10 20:33 Order name: Hepatic Function; Complete Time: 21:19 snw 02/10 20:33 Order name: Lipase; Complete Time: 21:19 snw 02/10 20:33 Order name: Flu; Complete Time: 21:28 snw 02/10 20:33 Order name: IV Saline Lock; Complete Time: 20:50 snw 02/10 20:33 Order name: Labs collected and sent; Complete Time: 20:50 snw Administered Medications: 20:50 Drug: NS 0.9% 1000 ml Route: IV; Rate: 1 bolus; Site: right forearm; rr5 22:00 Follow up: Response: No adverse reaction; IV Status: Completed infusion; IV Intake: rr5 1000ml 21:23 Drug: Thiamine 100 mg Route: IV; Rate: calculated rate; Site: right forearm; rr5 22:27 Follow up: Response: No adverse reaction; IV Status: Completed infusion rr5 Disposition: 02/11 09:01 Co-signature as Attending Physician, Marc Javed MD I agree with the assessment and robe plan of care. Disposition: 02/10/19 23:06 Discharged to Home. Impression: Acute upper respiratory infection, unspecified, Volume depletion. - Condition is Stable. - Discharge Instructions: Alcohol Use Disorder, Dehydration, Adult, Viral Respiratory Infection, Cool Mist Vaporizer, Fatigue, Alcohol Abuse and Nutrition, Rehydration, Adult. - Prescriptions for Vitamin 27- 0.8 mg Oral Tablet - take 1 tablet by ORAL route once daily; 30 tablet. promethazine 25 mg Oral Tablet - take 1 tablet by ORAL route every 6 hours As needed; 20 tablet. - Work release form, Medication Reconciliation Form, Thank You Letter, Antibiotic Education, Prescription Opioid Use form. - Follow up: Private Physician; When: 2 - 3 days; Reason: Recheck today's complaints, Continuance of care, Re-evaluation by your physician. Follow up: Emergency Department; When: As needed; Reason: Worsening of condition. Signatures: Dispatcher [employer] Marc Anaya MD MD cha Therrien, Shelly, SHANK FAKER-C SHANK FAKER-Csnw Cr Santillan RN RN jFinn Azar RN RN rr5 Corrections: (The following items were deleted from the chart) 02/10 21:51 21:44 Head/Face: Normocephalic, atraumatic. Eyes: Pupils equal round and reactive to snw light, extra-ocular motions intact. Lids and lashes normal. Conjunctiva and sclera are non-icteric and not injected. Cornea within normal limits. Periorbital areas with no swelling, redness, or edema. ENT: Nares patent. No nasal discharge, no septal abnormalities noted. Tympanic membranes are normal and external auditory canals are clear. Oropharynx with no redness, swelling, or masses, exudates, or evidence of obstruction, uvula midline. Mucous membranes moist. Neck: Trachea midline, no thyromegaly or masses palpated, and no cervical lymphadenopathy. Supple, full range of motion without nuchal rigidity, or vertebral point tenderness. No Meningismus. Chest/axilla: Normal chest wall appearance and motion. Nontender with no deformity. No lesions are appreciated. Cardiovascular: Regular rate and rhythm with a normal S1 and S2. No gallops, murmurs, or rubs. Normal PMI, no JVD. No pulse deficits. Respiratory: Lungs have equal breath sounds bilaterally, clear to auscultation and percussion. No rales, rhonchi or wheezes noted. No increased work of breathing, no retractions or nasal flaring. Abdomen/GI: Soft, mildly tender, with normal bowel sounds. No distension or tympany. No guarding or rebound. Back: No spinal tenderness. No costovertebral tenderness. Full range of motion. Skin: Warm, dry with normal turgor. Normal color with no rashes, no lesions, and no evidence of cellulitis. MS/ Extremity: Pulses equal, no cyanosis. Neurovascular intact. Full, normal range of motion. Neuro: Awake and alert, GCS 15, oriented to person, place, time, and situation. Cranial nerves II-XII grossly intact. Motor strength 5/5 in all extremities. Sensory grossly intact. Cerebellar exam normal. Normal gait. Psych: Awake, alert, with orientation to person, place and time. Behavior, mood, and affect are within normal limits. snw 23:20 23:06 02/10/2019 23:06 Discharged to Home. Impression: Acute upper respiratory rr5 infection, unspecified; Volume depletion. Condition is Stable. Forms are Medication Reconciliation Form, Thank You Letter, Antibiotic Education, Prescription Opioid Use. Follow up: Private Physician; When: 2 - 3 days; Reason: Recheck today's complaints, Continuance of care, Re-evaluation by your physician. Follow up: Emergency Department; When: As needed; Reason: Worsening of condition. snw
[2019-02-10 23:33] VITALS: O2SAT 99
[2019-02-10 23:35] VITALS: BP 141/78; TEMP 98
== END 2019-02-10 23:20 | disposition home or self-care (01) ==
LOC: ER 20:17
DX: J06.9 Acute upper respiratory infection, unspecified (principal); E86.9 Volume depletion, unspecified; F17.210 Nicotine dependence, cigarettes, uncomplicated; Z88.6 Allergy status to analgesic agent; Z91.030 Bee allergy status
CPT/HCPCS: 96365; 96361; 85025; 80048; 36415; 80076; 83690; 87804 ×2; 99284; J3411; J7030

== ENCOUNTER 2019-11-17 11:52 | Emergency (ER) | payer OTHER ==
[2019-11-17 13:14] LABS: Absolute Lymphocytes (CBC) 1.4 K/uL (0.7-4.9); Basophils % 1.2 % (0-1.3); Hematocrit 43.3 % (36.0-45.0); Lymphocytes % 24.5 % (15.3-44.8); MPV 8.8 fL (7.6-11.3); RBC Red Blood Cell Count 4.24 M/uL (3.86-4.86)
[2019-11-17 13:21] LABS: Protime INR 0.89
--- NOTE | 2019-11-17 13:28 | RAD REPORT ---
EXAM DESCRIPTION: RAD - Chest Single View - 11/17/2019 1:20 pm CLINICAL HISTORY: COUGH Chest pain. COMPARISON: Chest Single View dated 11/12/2016 FINDINGS: Portable technique limits examination quality. The lungs are grossly clear. The heart is normal in size. No displaced fractures. IMPRESSION: No acute intrathoracic process suspected.
[2019-11-17 14:40] LABS: ALT/SGPT 281 U/L (12-78); Alkaline Phosphatase 146 U/L (45-117); BUN Blood Urea Nitrogen 14 mg/dL (7-18); Bicarbonate 24 mmol/L (21-32); Bilirubin Direct 0.6 mg/dL (0-0.2); Bilirubin Total 1.9 mg/dL (0.2-1.0); Ferritin 2185.5 ng/mL (8-388); Glucose Level 92 mg/dL (74-106); Lipase 59 U/L (73-393); Protein, Total 6.9 g/dL (6.4-8.2); Sodium Level 140 mmol/L (136-145); Troponin (Emerg Dept Use Only) < 0.02 ng/mL (0.0-0.045)
[2019-11-17 14:41] LABS: C-Reactive Protein < 2.90 mg/L (<3.00)
[2019-11-17 14:43] LABS: AST/SGOT 453 U/L (15-37)
--- NOTE | 2019-11-17 14:51 | RAD REPORT ---
EXAM DESCRIPTION: CT - Chest For Pe Angio - 11/17/2019 2:34 pm CLINICAL HISTORY: Chest pain. Cough;SOB COMPARISON: Chest For Pe Angio dated 11/12/2016 TECHNIQUE: CT angiogram of the pulmonary arteries was performed with MIP. All CT scans are performed using dose optimization technique as appropriate and may include automated exposure control or mA/KV adjustment according to patient size. FINDINGS: No evidence of pulmonary thromboembolism. No acute aortic finding demonstrated. The lungs are clear. No significant pericardial or pleural fluid. No concerning bony finding. IMPRESSION: No evidence of pulmonary thromboembolism. No acute lung findings.
--- NOTE | 2019-11-17 16:32 | RAD REPORT ---
EXAM DESCRIPTION: CT - Abdomen Pelvis Wo Contrast - 11/17/2019 4:17 pm CLINICAL HISTORY: Abdominal pain. ABD PAIN COMPARISON: Abdomen Pelvis W Contrast dated 07/24/2018; Chest For Pe Angio dated 11/17/2019 TECHNIQUE: CT imaging of the abdomen and pelvis was performed without contrast. Solid organ, bowel a nd vascular assessment is limited due to lack of IV and oral contrast. All CT scans are performed using dose optimization technique as appropriate and may include automated exposure control or mA/KV adjustment according to patient size. FINDINGS: Linear subsegmental atelectasis is present in the left lung base. Fatty liver is seen with a small 7 mm cyst in the left lobe.Spleen, pancreas, adrenal glands and kidn eys show no acute process. Cholelithiasis is possible. No bowel obstruction, free air, free fluid or abscess. Diverticulosis coli is present particularly in the cecum. The appendix is normal. Moderate lumbosacral degenerative changes bilateral chronic L5-S1 spondylolysis. IMPRESSION: No acute intra-abdominal or pelvic findings. Cecal diverticulosis. Possible cholelithiasis. A limited non-contrast examination was performed as detailed.
--- NOTE | 2019-11-17 18:28 | RAD REPORT ---
EXAM DESCRIPTION: US - Abdomen Exam Limited - 11/17/2019 6:12 pm CLINICAL HISTORY: r/o gallstones Abdominal pain COMPARISON: Abdomen Exam Complete dated 12/13/2016 FINDINGS: The gallbladder demonstrates no gallstones. No pericholecystic fluid or gallbladder wall t hickening. The common bile duct is normal measuring 3 mm. The liver demonstrates no findings of intrahepatic biliary dilatation. IMPRESSION: Unremarkable examination.
--- NOTE | 2019-11-17 18:39 | ER ---
Nurse's Notes [facility] Name: Katie Velasquez Age: 59 yrs Sex: Female : 1960 Arrival Date: 11/17/2019 Time: 11:53 Bed 4 Private MD: Diagnosis: Myalgia;Chest pain, unspecified;Cough;Chronic active hepatitis, not elsewhere classified Presentation: 11/16 12:15 Chief complaint: Patient states: Fever, CP, sore throat, fever, fatigue since Thursday ll1 night. + body aches. Slight N/V/D. Coronavirus screen: Client denies travel out of the [place] in the last 14 days. Coronavirus screen: congestion, cough unrelated to allergies, diarrhea, fatigue, fever, sore throat. Ebola Screen: Patient denies travel to an Ebola-affected area in the 21 days before illness onset. Initial Sepsis Screen: Does the patient meet any 2 criteria? HR > 90 bpm. Risk Assessment: Do you want to hurt yourself or someone else? Patient reports no desire to harm self or others. Onset of symptoms was November 14, 2019. 12:15 Method Of Arrival: Ambulatory ll1 12:15 Acuity: COTY 3 ll1 12:45 Initial Sepsis Screen: Does the patient have a suspected source of infection? No. sv Patient's initial sepsis screen is negative. Historical: - Allergies: 12:18 Aspirin; ll1 12:18 Bees; ll1 12:18 unknown muscle relaxer; ll1 - PMHx: 12:18 Pancreatitis; ll1 - PSHx: 12:18 None; ll1 - Immunization history:: Flu vaccine is up to date. - Social history:: Smoking status: Patient reports the use of cigarette tobacco products, smokes one-half pack cigarettes per day, Patient uses alcohol, Patient/guardian denies using street drugs. Screenin:45 Abuse screen: Denies threats or abuse. Denies injuries from another. Nutritional sv screening: No deficits noted. Tuberculosis screening: No symptoms or risk factors identified. Fall Risk None identified. Assessment: 12:40 General: Appears in no apparent distress. comfortable, slender, Behavior is calm, sv cooperative, appropriate for age. General: Reports fever for 1-2 days, feeling ill for 1-2 days, fatigue for 1-2 days. Pain: Complains of pain in chest Pain does not radiate. Pain currently is 8 out of 10 on a pain scale. Pain began 2-3 days ago. Neuro: Level of Consciousness is awake, alert, obeys commands, Oriented to person, place, time, situation, Moves all extremities. Full function Gait is steady, Speech is normal. Cardiovascular: Patient's skin is warm and dry. Rhythm is sinus rhythm. Respiratory: Airway is patent Respiratory effort is even, unlabored, Respiratory pattern is regular, symmetrical. Derm: Skin is normal. Musculoskeletal: Range of motion: intact in all extremities. 12:50 Reassessment: COVID-19 sent. sv 14:30 Reassessment: Patient appears in no apparent distress at this time. No changes from sv previously documented assessment. Patient and/or family updated on plan of care and expected duration. Pain level reassessed. Patient is alert, oriented x 3, equal unlabored respirations, skin warm/dry/pink. 17:35 Reassessment: Patient appears in no apparent distress at this time. No changes from sv previously documented assessment. Patient and/or family updated on plan of care and expected duration. Pain level reassessed. Patient is alert, oriented x 3, equal unlabored respirations, skin warm/dry/pink. 18:13 Reassessment: US complete. sv 19:19 Reassessment: Patient appears in no apparent distress at this time. No changes from sv previously documented assessment. Patient and/or family updated on plan of care and expected duration. Pain level reassessed. Patient is alert, oriented x 3, equal unlabored respirations, skin warm/dry/pink. Vital Signs: 12:15 BP 114 / 85; Pulse 94; Resp 18; Temp 98.5; Pulse Ox 98% ; Weight 58.06 kg; Pain 8/10; ll1 14:08 BP 142 / 79; Pulse 75 MON; Resp 13; Pulse Ox 98% on R/A; sv 15:07 BP 150 / 72; Pulse 76; Resp 17; Pulse Ox 98% ; sv 16:08 BP 141 / 75; Pulse 76; Resp 17; Pulse Ox 99% ; sv 17:21 BP 141 / 69; Pulse 76; Resp 16; Pulse Ox 98% ; sv 18:17 BP 116 / 64; Pulse 78; Resp 20; Pulse Ox 100% ; sv 14:08 Sinus Rhythm sv ED Course: 11:53 Patient arrived in ED. fj1 12:17 Triage completed. ll1 12:18 Arm band placed on Patient placed in an exam room, on a stretcher. ll1 12:21 Renu Aviles, MARÍA is Primary Nurse. sv 12:32 Deep Townsend MD is Attending Physician. kdr 12:45 Patient has correct armband on for positive identification. Placed in gown. Bed in low sv position. Call light in reach. Side rails up X 1. cutter helper on. Pulse ox on. NIBP on. 12:45 First set of blood cultures drawn by me, Flu and/or RSV swab sent to lab. Strep swab sv sent to lab. 12:45 Patient maintains SpO2 saturation greater than 95% on room air. sv 12:50 Second set of blood cultures drawn by me. Inserted saline lock: 20 gauge in left sv forearm, using aseptic technique. Blood collected. Flushed left forearm with 5 ml normal saline. 13:05 EKG done, by ED staff, reviewed by Deep Townsend MD. sv 13:14 X-ray(s) taken. sv 13:14 Blood Culture Adult (2) Sent. sv 13:15 BMP Sent. sv 13:15 C-Reactive Protein Sent. sv 13:15 CBC with Diff Sent. sv 13:15 COVID-19 Sent. sv 13:15 D-Dimer Sent. sv 13:15 Ferritin Sent. sv 13:15 Flu Sent. sv 13:15 Lactate Sent. sv 13:15 LFT's Sent. sv 13:15 Lipase Sent. sv 13:15 Procalcitonin Sent. sv 13:15 PT-INR Sent. sv 13:15 Ptt, Activated Sent. sv 13:15 Strep Sent. sv 13:15 Troponin (emerg Dept Use Only) Sent. sv 13:15 CXR XRAY Sent. sv 13:31 Notified ED physician of a critical lab result(s). DDIMER [id number]. hb 14:50 Awaiting radiology results. Awaiting re-evaluation by ER provider. sv 15:04 CT Chest For PE Angio Sent. sv 16:22 Patient moved back from CT. sv 16:25 Awaiting radiology results. Awaiting re-evaluation by ER provider. sv 17:20 CT Abd/Pelvis - Without Contrast Sent. sv 17:21 Awaiting: Ultrasound. sv 17:57 Arsh Solorzano PA is PHCP. raúl 18:18 US Abdomen Limited Sent. sv 18:30 Awaiting radiology results. sv 19:19 No provider procedures requiring assistance completed. IV discontinued, intact, sv bleeding controlled, No redness/swelling at site. Pressure dressing applied. Administered Medications: No medications were administered Outcome: 18:39 Discharge ordered by . kdr 19:19 Discharged to home ambulatory. sv 19:19 Condition: stable 19:19 Discharge instructions given to patient, Instructed on discharge instructions, follow up and referral plans. medication usage, Demonstrated understanding of instructions, follow-up care, medications, Prescriptions given X 1. 19:20 Patient left the ED. sv Addendum: 11/21/2019 16:59 Addendum: COVID-19 Result: Negative result given to RN to notify pt. Attempted to s s contact pt regarding negative COVID-19 swab results. Left voice mail. 17:08 Addendum: COVID-19 Result: Negative result given to RN to notify pt. Notified pt of s s negative COVID 19 swab results. Pt advised that even with a negative test result they should remain in isolation until symptom free for 3 days without medication. Pt also advised to return to the ED for worsening symptoms. Signatures: Renu Aviles RN RN sv Rittger, Kevin, MD MD kdr Mickail, Joel, PA PA jmm Smirch, Shelby, RN RN Nichelle Lincoln RN RN hb James, Frank 1 Harjinder Turcios RN RN ll1 Corrections: (The following items were deleted from the chart) 11/16 17:22 17:21 BP 136 / 86; Pulse 95bpm; Resp 16bpm; Pulse Ox 100%; sv sv
--- NOTE | 2019-11-17 18:40 | EDPHYS ---
Physician Documentation [facility] Name: Katie Velasquez Age: 59 yrs Sex: Female : 1960 Arrival Date: 11/17/2019 Time: 11:53 Bed 4 Private MD: ED Physician Deep Townsend HPI: 11/16 13:17 This 59 yrs old Female presents to ER via Ambulatory with complaints of Pain kdr All Over, Chest Pain, Fever, Cough, Weakness. 13:17 The patient or guardian reports chest pain that is located primarily in the chest kdr diffusely. Onset: gradually, 1 week(s) ago. 13:18 The pain does not radiate. Associated signs and symptoms: Pertinent positives: kdr Generalized myalgias, arthralgias and paresthesias. The chest pain is described as aching. Duration: The patient or guardian reports a single episode, that is still ongoing, and unchanged. Severity of pain: At its worst the pain was mild in the emergency department the pain is unchanged. The patient has not experienced similar symptoms in the past. The patient has not recently seen a physician. Historical: - Allergies: 12:18 Aspirin; ll1 12:18 Bees; ll1 12:18 unknown muscle relaxer; ll1 - PMHx: 12:18 Pancreatitis; ll1 - PSHx: 12:18 None; ll1 - Immunization history:: Flu vaccine is up to date. - Social history:: Smoking status: Patient reports the use of cigarette tobacco products, smokes one-half pack cigarettes per day, Patient uses alcohol, Patient/guardian denies using street drugs. ROS: 13:14 Constitutional: Negative for weight loss - she has had fever (100.1) and general kdr myalgia Eyes: Negative for injury, pain, redness, and discharge, Neck: Negative for injury, pain, and swelling, Cardiovascular: Negative for chest pain, palpitations, and edema, Respiratory: Negative for shortness of breath, cough, wheezing, and pleuritic chest pain, Abdomen/GI: Negative for abdominal pain, nausea, vomiting, diarrhea, and constipation, Back: Negative for injury and pain, : Negative for injury, bleeding, discharge, and swelling, MS/Extremity: Negative for injury and deformity, Skin: Negative for injury, rash, and discoloration, Neuro: Negative for headache, weakness, numbness, tingling, and seizure activity. Psych: Negative for depression, anxiety, suicide ideation, homicidal ideation, and hallucinations, Allergy/Immunology: Negative for hives, rash, and allergies, Endocrine: Negative for neck swelling, polydipsia, polyuria, polyphagia, and marked weight changes, Hematologic/Lymphatic: Negative for swollen nodes, abnormal bleeding, and unusual bruising. Exam: 13:14 Constitutional: This is a well developed, well nourished patient who is awake, alert, kdr and in no acute distress. Head/Face: Normocephalic, atraumatic. Eyes: Pupils equal round and reactive to light, extra-ocular motions intact. Lids and lashes normal. Conjunctiva and sclera are non-icteric and not injected. Cornea within normal limits. Periorbital areas with no swelling, redness, or edema. Neck: Trachea midline, no thyromegaly or masses palpated, and no cervical lymphadenopathy. Supple, full range of motion without nuchal rigidity, or vertebral point tenderness. No Meningismus. Chest/axilla: Normal chest wall appearance and motion. Nontender with no deformity. No lesions are appreciated. Cardiovascular: Regular rate and rhythm with a normal S1 and S2. No gallops, murmurs, or rubs. Normal PMI, no JVD. No pulse deficits. Respiratory: Lungs have equal breath sounds bilaterally, clear to auscultation and percussion. No rales, rhonchi or wheezes noted. No increased work of breathing, no retractions or nasal flaring. Abdomen/GI: Soft, non-tender, with normal bowel sounds. No distension or tympany. No guarding or rebound. No evidence of tenderness throughout. Back: No spinal tenderness. No costovertebral tenderness. Full range of motion. Skin: Warm, dry with normal turgor. Normal color with no rashes, no lesions, and no evidence of cellulitis. MS/ Extremity: Pulses equal, no cyanosis. Neurovascular intact. Full, normal range of motion. Neuro: Awake and alert, GCS 15, oriented to person, place, time, and situation. Cranial nerves II-XII grossly intact. Motor strength 5/5 in all extremities. Sensory grossly intact. Cerebellar exam normal. Normal gait. Psych: Awake, alert, with orientation to person, place and time. Behavior, mood, and affect are within normal limits. 13:14 ECG was reviewed by the Attending Physician. Vital Signs: 12:15 BP 114 / 85; Pulse 94; Resp 18; Temp 98.5; Pulse Ox 98% ; Weight 58.06 kg; Pain 8/10; ll1 14:08 BP 142 / 79; Pulse 75 MON; Resp 13; Pulse Ox 98% on R/A; sv 15:07 BP 150 / 72; Pulse 76; Resp 17; Pulse Ox 98% ; sv 16:08 BP 141 / 75; Pulse 76; Resp 17; Pulse Ox 99% ; sv 17:21 BP 141 / 69; Pulse 76; Resp 16; Pulse Ox 98% ; sv 18:17 BP 116 / 64; Pulse 78; Resp 20; Pulse Ox 100% ; sv 14:08 Sinus Rhythm sv MDM: 18:39 Patient medically screened. kdr 18:46 Data reviewed: vital signs, nurses notes, lab test result(s), radiologic studies. kdr Counseling: I had a detailed discussion with the patient and/or guardian regarding: the historical points, exam findings, and any diagnostic results supporting the discharge/admit diagnosis, lab results, radiology results, the need for outpatient follow up. 11/16 12:33 Order name: Blood Culture Adult (2) kdr 11/16 12:33 Order name: BMP kdr 11/16 12:33 Order name: C-Reactive Protein kdr 11/16 12:33 Order name: CBC with Diff kdr 11/16 12:33 Order name: COVID-19 kdr 11/16 12:33 Order name: D-Dimer kdr 11/16 12:33 Order name: Ferritin kdr 11/16 12:33 Order name: Flu kdr 11/16 12:33 Order name: Lactate kdr 11/16 12:33 Order name: LFT's kdr 11/16 12:33 Order name: Lipase kdr 11/16 12:33 Order name: Procalcitonin kdr 11/16 12:33 Order name: PT-INR kdr 11/16 12:33 Order name: Ptt, Activated kdr 11/16 12:33 Order name: Strep kdr 11/16 12:33 Order name: Troponin (emerg Dept Use Only) kdr 11/16 12:33 Order name: Urine Microscopic Only kdr 11/16 13:16 Order name: CBC with Automated Diff; Complete Time: 13:28 EDMS 11/16 13:23 Order name: Lactate; Complete Time: 13:28 EDMS 08/06 13:27 Order name: Protime (+INR); Complete Time: 13:28 EDMS 08/ 13:27 Order name: PTT, Activated Partial Thromb; Complete Time: 13:28 EDMS 08/06 13:27 Order name: D-Dimer; Complete Time: 13:28 EDMS 08/ 13:46 Order name: Procalcitonin; Complete Time: 15:53 EDMS 08 14:43 Order name: Basic Metabolic Panel; Complete Time: 15:53 EDMS 08 14:43 Order name: Liver (Hepatic) Function; Complete Time: 15:53 EDMS 08/ 14:43 Order name: Troponin (Emerg Dept Use Only); Complete Time: 15:53 EDMS 08 14:43 Order name: C-Reactive Protein; Complete Time: 15:53 EDMS 0806 14:43 Order name: Lipase; Complete Time: 15:53 EDMS 08 14:43 Order name: Ferritin; Complete Time: 15:53 EDMS 08 14:51 Order name: CREATININE WHOLE BLOOD; Complete Time: 15:53 EDMS 0806 12:33 Order name: CXR XRAY kdr 11/16 12:33 Order name: EKG; Complete Time: 12:34 kdr 08 12:33 Order name: Cardiac monitoring; Complete Time: 13:15 kdr 08 12:33 Order name: Droplet/Contact Precautions; Complete Time: 13:15 kdr 08 12:33 Order name: EKG - Nurse/Tech; Complete Time: 13:15 kdr 11/16 12:33 Order name: IV Start; Complete Time: 13:16 kdr 08 12:33 Order name: Labs collected and sent; Complete Time: 13:16 kdr 08 12:33 Order name: O2 Per Protocol; Complete Time: 13:16 kdr 08 12:33 Order name: O2 Sat Monitoring; Complete Time: 13:16 kdr 08 12:33 Order name: Urine Dipstick-Ancillary (obtain specimen); Complete Time: 19:18 kdr 08 13:30 Order name: CT Chest For PE Angio kdr 11/16 13:31 Order name: RAD; Complete Time: 15:53 EDHI 11/16 13:32 Order name: Labs - recollect needed: recollect c7; Complete Time: 14:13 bd 11/16 14:52 Order name: CT; Complete Time: 15:53 EDMS 11/16 15:04 Order name: Group A Streptococcus Rapid Sc; Complete Time: 15:53 EDMS 11/16 15:05 Order name: Influenza Screen (A ; Complete Time: 15:53 EDMS 11/16 15:57 Order name: CT Abd/Pelvis - Without Contrast [facility] 11/16 16:33 Order name: CT; Complete Time: 16:47 EDMS 11/16 16:51 Order name: US Abdomen Limited bd 11/16 18:31 Order name: US; Complete Time: 19:38 EDMS 11/16 19:20 Order name: CORONAVIRUS; Complete Time: 19:38 EDMS EC:14 Rate is 80 beats/min. Rhythm is regular, Normal Sinus Rhythm with No ectopy. QRS [place] kdr is Normal. TX interval is normal. QRS interval is normal. QT interval is normal. No Q waves. Clinical impression: NSR w/ Non-specific ST/T Changes. Administered Medications: No medications were administered Disposition: 11/17/19 18:39 Discharged to Home. Impression: Myalgia, Chest pain, unspecified, Cough, Chronic active hepatitis, not elsewhere classified. - Condition is Stable. - Discharge Instructions: COVID-19, Alcohol Use Disorder, Musculoskeletal Pain, Muscle Pain, Adult, Nonspecific Chest Pain, [id number], Alcoholic Liver Disease, Pwig-wa-Yjmf, Alcoholic Hepatitis. - Prescriptions for Tramadol 50 mg Oral Tablet - take 1 tablet by ORAL route every 8 hours as needed; 12 tablet. - Work release form, Medication Reconciliation Form, Thank You Letter form. - Follow up: Private Physician; When: 2 - 3 days; Reason: If symptoms return, Further diagnostic work-up, Recheck today's complaints, Continuance of care, Re-evaluation by your physician. - Problem is new. - Symptoms have improved. Signatures: Dispatcher [employer] EDMS Peggy Ortega Stephanie, RN RN Deep Leach MD MD kdr Mickail, Joel, PA PA jmm Lewis, Lynsay RN RN ll1 Corrections: (The following items were deleted from the chart) 18:40 18:39 11/17/2019 18:39 Discharged to Home. Impression: Myalgia; Chest pain, kdr unspecified; Cough. Condition is Stable. Forms are Medication Reconciliation Form, Thank You Letter, Antibiotic Education, Prescription Opioid Use. Follow up: Private Physician; When: 2 - 3 days; Reason: If symptoms return, Further diagnostic work-up, Recheck today's complaints, Continuance of care, Re-evaluation by your physician. Problem is new. Symptoms have improved. kdr 19:20 18:40 11/17/2019 18:39 Discharged to Home. Impression: Myalgia; Chest pain, sv unspecified; Cough; Chronic active hepatitis, not elsewhere classified. Condition is Stable. Forms are Medication Reconciliation Form, Thank You Letter, Antibiotic Education, Prescription Opioid Use. Follow up: Private Physician; When: 2 - 3 days; Reason: If symptoms return, Further diagnostic work-up, Recheck today's complaints, Continuance of care, Re-evaluation by your physician. Problem is new. Symptoms have improved. kdr
[2019-11-17 19:24] LABS: Urine Bacteria NONE SEEN /HPF (<20); Urine RBC <5 /HPF (NONE SEEN)
[2019-11-17 19:25] LABS: Urine Culture Reflex Order NOT NEEDED; Urine Mucus 1+ /HPF (NONE SEEN)
[2019-11-17 19:28] VITALS: TEMP 98.5
[2019-11-17 19:34] VITALS: BP 116/64; O2SAT 100
[2019-11-17 21:18] LABS: Urine Blood NEGATIVE (NEG); Urine Glucose NEGATIVE (NEG); Urine Protein NEGATIVE (NEG); Urine Specific Gravity 1.015 (1.005-1.030)
--- NOTE | 2019-11-20 07:53 | EKG ---
Test Date: 2019-11-17 Test Time: 13:05:51 Offline Editor: BOB MEASUREMENT RESULTS: Intervals: Rate: 80 OH: 162 QRSD: 86 QT: 388 QTc: 447 Clawson: P: 71 OH: 162 QRS: -87 T: 48 INTERPRETIVE STATEMENTS: Normal sinus rhythm Left axis deviation Abnormal ECG Compared to ECG 11/12/2016 10:55:24 No significant changes Electronically Signed On 11-20-19 07:50:00 CDT by Bill Shane
== END 2019-11-17 19:20 | disposition home or self-care (01) ==
LOC: ER 11:52
DX: R07.9 Chest pain, unspecified (principal); M79.10 Myalgia, unspecified site; R05 Cough; K73.2 Chronic active hepatitis, not elsewhere classified; Z91.030 Bee allergy status; F17.210 Nicotine dependence, cigarettes, uncomplicated; Z88.6 Allergy status to analgesic agent; Z11.59 Encounter for screening for other viral diseases
CPT/HCPCS: 93005; 87040 ×2; 87070; 85025; 80048; 36415; 85610; 82565; 85379; 80076; 87081; 83605; 85730; 84484; 82728; 83690; 84145; 86140; 87804 ×2; 71275; 74176; 71045; 76705; 99285; U0002; Q9967; 81003; 81015

== ENCOUNTER 2020-10-20 11:35 | Emergency (ER) | payer OTHER ==
--- NOTE | 2020-10-20 12:51 | RAD REPORT ---
EXAM DESCRIPTION: RAD - Hand Left 3 View - 10/20/2020 12:00 pm CLINICAL HISTORY: SMASH INJURY COMPARISON: None. FINDINGS: No fracture, dislocation or periosteal reaction noted. No foreign body or other soft tissu e abnormality. IMPRESSION: Negative left hand examination.
--- NOTE | 2020-10-20 12:52 | RAD REPORT ---
EXAM DESCRIPTION: RAD - Hand Right 3 View - 10/20/2020 12:00 pm CLINICAL HISTORY: SMASH INJURY COMPARISON: No comparisons FINDINGS: No fracture is identified. There is no dislocation or periosteal reaction noted. No forei gn body or significant soft tissue abnormality. IMPRESSION: Negative right hand examination.
--- NOTE | 2020-10-20 12:56 | EDPHYS ---
Physician Documentation [facility] Name: Katie Velasquez Age: 59 yrs Sex: Female : 1960 Arrival Date: 10/20/2020 Time: 11:38 Bed 18 Private MD: ED Physician Jude Segura HPI: 10/20 12:26 This 59 yrs old Female presents to ER via Ambulatory with complaints of tw4 Finger Injury. 12:35 The patient or guardian reports injury. The complaints affect the DIP of left ring tw4 finger, DIP of right ring finger. Context: The problem was sustained at home, resulted from an unknown cause. Onset: The symptoms/episode began/occurred last week. Modifying factors: The symptoms are alleviated by nothing, the symptoms are aggravated by nothing. Severity of symptoms: At their worst the symptoms were moderate, in the emergency department the symptoms are unchanged. The patient has not experienced similar symptoms in the past. Historical: - Allergies: 11:41 Aspirin; ca1 11:41 Bees; ca1 11:41 unknown muscle relaxer; ca1 - PMHx: 11:41 Pancreatitis; ca1 - Immunization history:: Client reports having NOT received the Covid vaccine. Flu vaccine is not up to date. - Social history:: Smoking status: Patient reports the use of cigarette tobacco products, smokes one pack cigarettes per day. ROS: 12:35 Constitutional: Negative for fever, chills, and weight loss, Eyes: Negative for injury, tw4 pain, redness, and discharge, Cardiovascular: Negative for chest pain, palpitations, and edema, Respiratory: Negative for shortness of breath, cough, wheezing, and pleuritic chest pain, Abdomen/GI: Negative for abdominal pain, nausea, vomiting, diarrhea, and constipation, Back: Negative for injury and pain. 12:35 MS/extremity: Positive for swelling, tenderness. Exam: 12:35 Constitutional: This is a well developed, well nourished patient who is awake, alert, tw4 and in no acute distress. Head/Face: Normocephalic, atraumatic. Chest/axilla: Normal chest wall appearance and motion. Nontender with no deformity. No lesions are appreciated. Cardiovascular: Regular rate and rhythm with a normal S1 and S2. No gallops, murmurs, or rubs. Normal PMI, no JVD. No pulse deficits. Respiratory: Lungs have equal breath sounds bilaterally, clear to auscultation and percussion. No rales, rhonchi or wheezes noted. No increased work of breathing, no retractions or nasal flaring. Abdomen/GI: Soft, non-tender, with normal bowel sounds. No distension or tympany. No guarding or rebound. No evidence of tenderness throughout. Back: No spinal tenderness. No costovertebral tenderness. Full range of motion. 12:35 Musculoskeletal/extremity: Extremities: noted in the palmar aspect of distal phalanx of left middle finger: noted in the palmar aspect of distal phalanx of right ring finger: Vital Signs: 11:39 BP 146 / 86; Pulse 96; Resp 16 A; Temp 97.2(TE); Pulse Ox 99% ; Weight 63.05 kg (R); ca1 Height 5 ft. 4 in. (162.56 cm) (R); Pain 5/10; 12:40 BP 138 / 81; Pulse 89; Resp 16; Pulse Ox 99% ; rb3 11:39 Body Mass Index 23.86 (63.05 kg, 162.56 cm) ca1 MDM: 11:43 Patient medically screened. tw4 12:56 Data reviewed: vital signs, nurses notes, radiologic studies, plain films. Counseling: tw4 I had a detailed discussion with the patient and/or guardian regarding: the historical points, exam findings, and any diagnostic results supporting the discharge/admit diagnosis, radiology results. Special discussion: I discussed with the patient/guardian in detail that at this point there is no indication for admission to the hospital. It is understood, however, that if the symptoms persist or worsen the patient needs to return immediately for re-evaluation. 10/20 11:44 Order name: Hand Right 3 View XRAY; Complete Time: 12:54 tw4 10/20 12:54 Interpretation: No acute disease. tw4 10/20 11:44 Order name: Hand Left 3 View XRAY; Complete Time: 12:54 tw4 10/20 12:54 Interpretation: No acute disease. tw4 Administered Medications: 13:04 Drug: Ibuprofen 400 mg {Note: pt. only wanted to take 400 mg, refused the other 400 rb3 mg.} Route: PO; 13:17 Follow up: Response: Medication administered at discharge. rb3 13:06 Not Given (Patient Refused): traMADol 50 mg PO once; RASS on ADMIN: Combtv4, Very rb3 Agttd3, Agttd2, Rstlss1, AlertClm0, Drwsy-1, Lt Sdtn-2, Mod Sdtn-3, Dp Sdtn-4, UnArsble-5 Disposition Summary: 10/20/20 12:55 Discharge Ordered Location: Home tw4 Problem: new tw4 Symptoms: have improved tw4 Condition: Stable tw4 Diagnosis - Contusion of finger without damage to nail tw4 Followup: tw4 - With: Private Physician - When: Upon discharge from the Emergency Department - Reason: Recheck today's complaints, Continuance of care, Re-evaluation by your physician Discharge Instructions: - Discharge Summary Sheet tw4 - Hand Contusion tw4 Forms: - Medication Reconciliation Form tw4 - Thank You Letter tw4 - Antibiotic Education tw4 - Prescription Opioid Use tw4 - Work release form rb3 Prescriptions: - Ibuprofen 800 mg Oral Tablet - take 1 tablet by ORAL route every 12 hours As needed take with food; 20 tablet; tw4 Refills: 0, Product Selection Permitted Signatures: Dispatcher [employer] Jude Galan MD MD tw4 Kayleigh Alvarez RN RN Kinza Wilcox, RN RN rb3
--- NOTE | 2020-10-20 12:56 | ER ---
Nurse's Notes [facility] Name: Katie Velasquez Age: 59 yrs Sex: Female : 1960 Arrival Date: 10/20/2020 Time: 11:38 Bed 18 Private MD: Diagnosis: Contusion of finger without damage to nail Presentation: 10/20 11:39 Chief complaint: Patient states: Slammed 4th digit of L hand on 10/11/2020. Slammed 3rd ca1 digit of R hand 10/18/2020. Now bruised and swollen. Coronavirus screen: Client denies travel out of the [place] in the last 14 days. At this time, the client does not indicate any symptoms associated with coronavirus-19. Ebola Screen: Patient negative for fever greater than or equal to 101.5 degrees Fahrenheit, and additional compatible Ebola Virus Disease symptoms Patient denies exposure to infectious person. Patient denies travel to an Ebola-affected area in the 21 days before illness onset. No symptoms or risks identified at this time. Initial Sepsis Screen: Does the patient meet any 2 criteria? No. Patient's initial sepsis screen is negative. Does the patient have a suspected source of infection? No. Patient's initial sepsis screen is negative. Risk Assessment: Do you want to hurt yourself or someone else? Patient reports no desire to harm self or others. Onset of symptoms was October 20, 2020. 11:39 Method Of Arrival: Ambulatory ca1 11:39 Acuity: COTY 4 ca1 Triage Assessment: 11:45 Injury Description: smashed finger in door frame. rb3 Historical: - Allergies: 11:41 Aspirin; ca1 11:41 Bees; ca1 11:41 unknown muscle relaxer; ca1 - PMHx: 11:41 Pancreatitis; ca1 - Immunization history:: Client reports having NOT received the Covid vaccine. Flu vaccine is not up to date. - Social history:: Smoking status: Patient reports the use of cigarette tobacco products, smokes one pack cigarettes per day. Screenin:45 Abuse screen: Denies threats or abuse. Nutritional screening: No deficits noted. rb3 Tuberculosis screening: No symptoms or risk factors identified. Fall Risk None identified. Assessment: 11:45 General: Appears in no apparent distress. Behavior is calm, cooperative. Pain: rb3 Complains of pain in 4th digit Left hand, 3rd digit on the Right hand. Neuro: Level of Consciousness is awake, alert, obeys commands, Oriented to person, place, time, situation. Cardiovascular: Patient's skin is warm and dry. Respiratory: Airway is patent Respiratory effort is even, unlabored, Respiratory pattern is regular, symmetrical. GI: No signs and/or symptoms were reported involving the gastrointestinal system. : No signs and/or symptoms were reported regarding the genitourinary system. Derm: Bruising that is dark purple, on 4th digit Left hand, 3rd digit R Hand. Musculoskeletal: Range of motion: limited in 4th digit Left hand. 12:45 Reassessment: Patient appears in no apparent distress at this time. No changes from rb3 previously documented assessment. Vital Signs: 11:39 BP 146 / 86; Pulse 96; Resp 16 A; Temp 97.2(TE); Pulse Ox 99% ; Weight 63.05 kg (R); ca1 Height 5 ft. 4 in. (162.56 cm) (R); Pain 5/10; 12:40 BP 138 / 81; Pulse 89; Resp 16; Pulse Ox 99% ; rb3 11:39 Body Mass Index 23.86 (63.05 kg, 162.56 cm) ca1 ED Course: 11:38 Patient arrived in ED. bp1 11:41 Triage completed. ca1 11:41 Arm band placed on right wrist. ca1 11:42 Kinza Harrington, RN is Primary Nurse. rb3 11:43 Jude Segura MD is Attending Physician. tw4 11:45 Patient has correct armband on for positive identification. Bed in low position. Call rb3 light in reach. Side rails up X 1. Pulse ox on. NIBP on. 12:00 Hand Right 3 View XRAY In Process Unspecified. EDMS 12:00 Hand Left 3 View XRAY In Process Unspecified. EDMS 13:20 No provider procedures requiring assistance completed. Patient did not have IV access rb3 during this emergency room visit. Administered Medications: 13:04 Drug: Ibuprofen 400 mg {Note: pt. only wanted to take 400 mg, refused the other 400 rb3 mg.} Route: PO; 13:17 Follow up: Response: Medication administered at discharge. rb3 13:06 Not Given (Patient Refused): traMADol 50 mg PO once; RASS on ADMIN: Combtv4, Very rb3 Agttd3, Agttd2, Rstlss1, AlertClm0, Drwsy-1, Lt Sdtn-2, Mod Sdtn-3, Dp Sdtn-4, UnArsble-5 Outcome: 12:55 Discharge ordered by . [email or web address] 13:20 Discharged to home ambulatory. rb3 13:20 Condition: stable 13:20 Discharge instructions given to patient, Instructed on discharge instructions, follow up and referral plans. Demonstrated understanding of instructions, follow-up care, Prescriptions given X none 13:21 Patient left the ED. rb3 Signatures: Dispatcher [employer] EDMS Jude Segura MD MD tw4 Kayleigh Alvarez, RN RN Hanny Lindsey Rebecca, RN RN rb3
[2020-10-20] MEDS ORDERED: IBUPROFEN 400 MG TAB ONE (13:22)
[2020-10-20 13:27] VITALS: TEMP 97.2; O2SAT 99
[2020-10-20 13:28] VITALS: BP 138/81
== END 2020-10-20 13:21 | disposition home or self-care (01) ==
LOC: ER 11:35
DX: S60.042A Contusion of left ring finger without damage to nail, initial encounter (principal); S60.041A Contusion of right ring finger without damage to nail, initial encounter; F17.210 Nicotine dependence, cigarettes, uncomplicated; Z88.6 Allergy status to analgesic agent; Z91.030 Bee allergy status
CPT/HCPCS: 99284

== ENCOUNTER 2020-10-29 16:47 | Emergency (ER) | payer OTHER ==
[2020-10-29] MEDS ORDERED: MORPHINE 2 MG/ML SYR ONE (21:10)
[2020-10-29] MEDS ORDERED: ONDANSETRON 4 MG/2 ML VIAL ONE (21:10)
[2020-10-29] MEDS ORDERED: CLOPIDOGREL 75 MG TABLET ONE ×2 (21:10→23:38)
[2020-10-29] MEDS ORDERED: NA CHLORIDE 0.9% 1,000 ML ONE (21:10)
[2020-10-29] MEDS ORDERED: FAMOTIDINE 20 MG/2 ML VIAL IV ONE (21:10)
[2020-10-29 21:24] LABS: Absolute Lymphocytes (CBC) 2.3 K/uL (0.7-4.9); Basophils % 1.2 % (0-1.3); Hematocrit 42.4 % (36.0-45.0); Lymphocytes % 21.4 % (15.3-44.8); RBC Red Blood Cell Count 4.45 M/uL (3.86-4.86)
[2020-10-29 21:25] LABS: Protime INR 1.02
--- NOTE | 2020-10-29 21:34 | RAD REPORT ---
EXAM DESCRIPTION: RAD - Chest Single View - 10/29/2020 9:18 pm CLINICAL HISTORY: CHEST PAIN Chest pain. COMPARISON: Chest Single View dated 11/17/2019; Chest Single View dated 11/12/2016 FINDINGS: Portable technique limits examination quality. The lungs are mildly emphysematous but grossly clear. The heart is normal in size. No displaced fract ures. IMPRESSION: No acute intrathoracic process suspected.
[2020-10-29 21:38] LABS: ALT/SGPT 15 U/L (12-78); AST/SGOT 15 U/L (15-37); Albumin 3.3 g/dL (3.4-5.0); Alkaline Phosphatase 64 U/L (45-117); BUN Blood Urea Nitrogen 7 mg/dL (7-18); Bicarbonate 28 mmol/L (21-32); Bilirubin Direct 0.1 mg/dL (0-0.2); Bilirubin Total 0.2 mg/dL (0.2-1.0); Glucose Level 125 mg/dL (74-106); HDL Cholesterol 36 mg/dL (40-60); LDL Cholesterol, Calculated 71 (<130); Lipase 144 U/L (73-393); Magnesium 2.1 mg/dL (1.8-2.4); NT PRO-BNP 39 pg/mL (<125); Potassium 3.7 mmol/L (3.5-5.1); Protein, Total 7.8 g/dL (6.4-8.2); Sodium Level 138 mmol/L (136-145); Troponin (Emerg Dept Use Only) < 0.02 ng/mL (0.0-0.045)
[2020-10-29] MEDS ORDERED: TRAMADOL HCL 50 MG TAB ONE (22:10)
[2020-10-29 22:16] LABS: Barbiturates NEGATIVE (NEGATIVE); Benzodiazepines NEGATIVE (NEGATIVE); Cocaine NEGATIVE (NEGATIVE); METHAMPHETAM NEGATIVE (NEGATIVE); Methadone NEGATIVE (NEGATIVE); Opiates NEGATIVE (NEGATIVE); Phencyclidine NEGATIVE (NEGATIVE); THC Cannibis NEGATIVE (NEGATIVE)
--- NOTE | 2020-10-29 22:16 | RAD REPORT ---
EXAM DESCRIPTION: CT - Angio Aorta For Dissection - 10/29/2020 9:41 pm CLINICAL HISTORY: Chest pain radiating to the back. Dissection;PE COMPARISON: No comparisons TECHNIQUE: CT angiography of the aorta was performed with MIPs. All CT scans are performed using dose optimization technique as appropriate and may include automated exposure control or mA/KV adjustment according to patient size. FINDINGS: A left aortic arch is present with normal branching pattern of the great vessels.No acute aortic finding is seen such as aneurysm, penetrating ulcer or dissection. Mild atherosclerosis distal abdominal aorta. The celiac axis, SMA, TOMMY and renal arteries are patent. No evidence of pulmonary embolism. The lungs are clear. Mild linear atelectasis in the left base. The liver demonstrates no focal mass or biliary dilatation.Small cyst suspected left lobe of the live r.The spleen, pancreas, adrenal glands and kidneys are within normal limits for arterial phase imagin g. No bowel obstruction, free fluid or abscess.Normal appendix.No pathologic enlarged lymphadenopathy id entified. No fracture or worrisome bone lesion seen.Chronic bilateral spondylolysis L5-S1. IMPRESSION: No acute aortic finding is demonstrated.
[2020-10-29] MEDS ORDERED: ISOSORBIDE MONO SR 30 MG TAB PO ONE (22:19)
--- NOTE | 2020-10-29 23:10 | EDPHYS ---
Physician Documentation [facility] Name: Katie Velasquez Age: 60 yrs Sex: Female : 1960 Arrival Date: 10/29/2020 Time: 16:53 Bed 14 Private MD: KALINA Physician Marc Javed HPI: 10/29 20:42 This 60 yrs old Female presents to ER via Ambulatory with complaints of robe Finger Discoloration. 20:42 The patient or guardian reports decreased range of motion, pain. The complaints affect robe the left hand diffusely, right hand diffusely. Context: The problem was sustained at an unknown location. The patient presents with pain. The complaints affect the right hand, left hand, right foot and left foot. Context: The problem was sustained at an unknown location. Onset: The symptoms/episode began/occurred 1 week(s) ago. Modifying factors: The symptoms are alleviated by nothing, the symptoms are aggravated by movement. Modifying factors: The symptoms are alleviated by nothing, the symptoms are aggravated by movement, dependent position. Historical: - Allergies: 17:33 Aspirin; ca1 17:33 unknown muscle relaxer; ca1 17:33 Bees; ca1 - PMHx: 17:33 Pancreatitis; ca1 - Immunization history:: Client reports having NOT received the Covid vaccine. Flu vaccine is up to date. - Social history:: Smoking status: Patient reports the use of cigarette tobacco products, smokes one pack cigarettes per day. - Family history:: not pertinent. ROS: 20:42 MS/extremity: Positive for pain, swelling, tenderness, of the right hand, left hand, robe right foot and left foot. 20:42 Constitutional: Negative for fever, chills, and weight loss, Eyes: Negative for injury, pain, redness, and discharge, ENT: Negative for injury, pain, and discharge, Neck: Negative for injury, pain, and swelling, Cardiovascular: Negative for chest pain, palpitations, and edema, Respiratory: Negative for shortness of breath, cough, wheezing, and pleuritic chest pain, Abdomen/GI: Negative for abdominal pain, nausea, vomiting, diarrhea, and constipation, Back: Negative for injury and pain, : Negative for injury, bleeding, discharge, and swelling, Skin: Negative for injury, rash, and discoloration, Neuro: Negative for headache, weakness, numbness, tingling, and seizure, Psych: Negative for depression, anxiety, suicide ideation, homicidal ideation, and hallucinations, Allergy/Immunology: Negative for hives, rash, and allergies, Endocrine: Negative for neck swelling, polydipsia, polyuria, polyphagia, and marked weight changes, Hematologic/Lymphatic: Negative for swollen nodes, abnormal bleeding, and unusual bruising. 20:42 MS/extremity: Positive for ecchymosis, erythema, pain, swelling, tenderness, of the right hand, left hand, right foot and left foot. Exam: 20:42 Constitutional: This is a well developed, well nourished patient who is awake, alert, robe and in no acute distress. Head/Face: Normocephalic, atraumatic. Eyes: Pupils equal round and reactive to light, extra-ocular motions intact. Lids and lashes normal. Conjunctiva and sclera are non-icteric and not injected. Cornea within normal limits. Periorbital areas with no swelling, redness, or edema. ENT: Nares patent. No nasal discharge, no septal abnormalities noted. Tympanic membranes are normal and external auditory canals are clear. Oropharynx with no redness, swelling, or masses, exudates, or evidence of obstruction, uvula midline. Mucous membranes moist. Neck: Trachea midline, no thyromegaly or masses palpated, and no cervical lymphadenopathy. Supple, full range of motion without nuchal rigidity, or vertebral point tenderness. No Meningismus. Chest/axilla: Normal chest wall appearance and motion. Nontender with no deformity. No lesions are appreciated. Cardiovascular: Regular rate and rhythm with a normal S1 and S2. No gallops, murmurs, or rubs. Normal PMI, no JVD. No pulse deficits. Respiratory: Lungs have equal breath sounds bilaterally, clear to auscultation and percussion. No rales, rhonchi or wheezes noted. No increased work of breathing, no retractions or nasal flaring. Abdomen/GI: Soft, non-tender, with normal bowel sounds. No distension or tympany. No guarding or rebound. No evidence of tenderness throughout. Back: No spinal tenderness. No costovertebral tenderness. Full range of motion. Female : Normal external genitalia. Neuro: Awake and alert, GCS 15, oriented to person, place, time, and situation. Cranial nerves II-XII grossly intact. Motor strength 5/5 in all extremities. Sensory grossly intact. Cerebellar exam normal. Normal gait. Psych: Awake, alert, with orientation to person, place and time. Behavior, mood, and affect are within normal limits. 20:42 Musculoskeletal/extremity: DVT Exam: No signs of deep vein thrombosis. no swelling, negative Homans' sign noted on exam, no erythema, no increased warmth, pain, tenderness, bluish discoloration, that is mild, of the right hand, left hand, right foot and left foot. 20:42 Skin: Appearance: Color: normal in color, Temperature: normal temperature, Moisture: normal moisture, petechiae, not noted, ecchymosis, not noted, flushing, not noted. 22:18 ECG was reviewed by the Attending Physician. [facility] Vital Signs: 17:30 BP 135 / 82; Pulse 95; Resp 18 S; Temp 99.4(O); Pulse Ox 99% on R/A; Weight 62.6 kg ca1 (R); Height 5 ft. 4 in. (162.56 cm) (R); Pain 0/10; 23:05 BP 126 / 72; Pulse 79; Resp 16; Pulse Ox 97% on R/A; ca1 17:30 Body Mass Index 23.69 (62.60 kg, 162.56 cm) ca1 MDM: 20:13 Patient medically screened. robe 20:47 Differential diagnosis: closed fracture, contusion, sprain, cellulitis, severe pvd. robe emboli. Data reviewed: vital signs, nurses notes, lab test result(s), EKG, radiologic studies, CT scan, plain films. 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 Test interpretation: by ED physician or midlevel provider: ECG, plain radiologic studies. Counseling: I had a detailed discussion with the patient and/or guardian regarding: the historical points, exam findings, and any diagnostic results supporting the discharge/admit diagnosis, lab results, radiology results. 10/29 20:34 Order name: Basic Metabolic Panel [facility] 10/29 20:34 Order name: CBC with Diff [facility] 10/29 20:34 Order name: LFT's [facility] 10/29 20:34 Order name: Magnesium; Complete Time: 22:19 [facility] 10/29 20:34 Order name: NT PRO-BNP; Complete Time: 22:19 [facility] 10/29 20:34 Order name: PT-INR; Complete Time: 21:43 [facility] 10/29 20:34 Order name: Troponin (emerg Dept Use Only); Complete Time: 22:19 [facility] 10/29 20:34 Order name: Lipase; Complete Time: 22:19 [facility] 10/29 20:34 Order name: UDS; Complete Time: 22:19 [facility] 10/29 20:34 Order name: Lipid Profile; Complete Time: 22:19 [facility] 10/29 20:35 Order name: Basic Metabolic Panel; Complete Time: 22:19 [facility] 10/29 20:35 Order name: CBC with Automated Diff; Complete Time: 21:43 [facility] 10/29 20:35 Order name: Liver (Hepatic) Function; Complete Time: 22: [facility] 10/29 20:36 Order name: COVID-19 : Document "Date of Symptom Onset" if Symptomatic. [facility] 10/29 20:34 Order name: XRAY Chest (1 view); Complete Time: 21:43 [facility] 10/29 20:34 Order name: EKG; Complete Time: 20:35 [facility] 10/29 20:34 Order name: Cardiac monitoring [facility] 10/29 20:35 Order name: CT Aorta for Dissection; Complete Time: 22:19 [facility] 10/29 22:58 Order name: SARS-COV-2 RT PCR [facility] 10/29 20:34 Order name: EKG - Nurse/Tech [facility] 10/29 20:34 Order name: IV Saline Lock [facility] 10/29 20:34 Order name: Labs collected and sent [facility] 10/29 20:34 Order name: O2 Per Protocol [facility] 10/29 20:34 Order name: O2 Sat Monitoring [facility] 10/29 20:34 Order name: Urine Dipstick-Ancillary (obtain specimen) [facility] 10/29 20:34 Order name: Oxygen [facility] EC:18 Rate is 84 beats/min. Rhythm is regular. QRS [place] is Normal. ND interval is normal. QRS robe interval is normal. QT interval is normal. No Q waves. T waves are Normal. No ST changes noted. Clinical impression: NSR w/ Non-specific ST/T Changes and No evidence of ischemia. Interpreted by me. Reviewed by me. Administered Medications: 21:28 CANCELLED (Duplicate Order): morphine 2 mg IVP once; (PAIN>8) RASS on ADMN: Combtv4, robe Very Agttd3, Agttd2, Rstlss1, AlertClm0, Drwsy-1, LtSdtn-2, ModSdtn-3, DpSdtn-4, UnArsble-5 x2 21:43 Drug: NS 0.9% 500 ml Route: IV; Rate: bolus; Site: right antecubital; ca1 21:43 Drug: NS 0.9% 1000 ml Route: IV; Rate: 125 ml/hr; Site: right antecubital; ca1 21:43 Drug: Pepcid (famotidine) 20 mg Route: IVP; Site: right antecubital; ca1 21:43 Drug: Zofran (Ondansetron) 4 mg Route: IVP; Site: right antecubital; ca1 21:43 Drug: PlaVIX (clopidogrel) 75 mg Route: PO; ca1 21:49 Drug: traMADol 100 mg Route: PO; ca1 22:04 Drug: Imdur (isosorbide mononitrate) 30 mg Route: PO; ca1 23:19 Drug: PlaVIX (clopidogrel) 75 mg Route: PO; ca1 Disposition Summary: 10/29/20 23:09 Discharge Ordered Location: Home robe Problem: new robe Symptoms: have improved robe Condition: Stable robe Diagnosis - Tobacco abuse counseling robe - Tobacco use robe - Peripheral vascular disease, unspecified robe Followup: robe - With: Private Physician - When: 2 - 3 days - Reason: Recheck today's complaints, Continuance of care, Re-evaluation by your physician Followup: robe - With: Bill Shane MD - When: 1 - 2 days - Reason: Recheck today's complaints, Continuance of care, Re-evaluation by your physician Discharge Instructions: - Discharge Summary Sheet robe - Peripheral Vascular Disease robe - Steps to Quit Smoking robe - Health Risks of Smoking robe - Peripheral Vascular Disease, [id number] robe Forms: - Medication Reconciliation Form robe - Thank You Letter robe - Antibiotic Education robe - Prescription Opioid Use robe Prescriptions: - Lipitor 10 mg Oral Tablet - take 1 tablet by ORAL route once daily; 30 tablet; Refills: 0, Product robe Selection Permitted - Plavix 75 mg Oral Tablet - take 1 tablet by ORAL route once daily; 20 tablet; Refills: 0, Product robe Selection Permitted - Tramadol 50 mg Oral Tablet - take 2 tablet by ORAL route every 8 hours as needed; 26 tablet; Refills: 0, [facility] Product Selection Permitted Signatures: Dispatcher [employer] EDMS Marc Javed MD MD cha Acob, Kayleigh RN RN ca1 Corrections: (The following items were deleted from the chart) 21:28 20:34 morphine 2 mg IVP once; (PAIN>8) RASS on ADMN: Combtv4, Very Agttd3, Agttd2, robe Rstlss1, AlertClm0, Drwsy-1, LtSdtn-2, ModSdtn-3, DpSdtn-4, UnArsble-5 x2 ordered. [facility] 21:40 20:36 CORONAVIRUS ordered. EDMS EDMS
--- NOTE | 2020-10-29 23:10 | ER ---
Nurse's Notes [facility] Name: Katie Velasquez Age: 60 yrs Sex: Female : 1960 Arrival Date: 10/29/2020 Time: 16:53 Bed 14 Private MD: Diagnosis: Tobacco abuse counseling;Tobacco use;Peripheral vascular disease, unspecified Presentation: 10/29 17:30 Chief complaint: Patient states: My doctor at the [facility] sent me to the ER for possible ca1 PAD. My fingers ang toes turning purple. The 4th digit on L hand is worse. It;s swollen and darker purple almost black. I smashed it about 2 weeks ago and I was here and Xray was done. Coronavirus screen: Client denies travel out of the [place] in the last 14 days. At this time, the client does not indicate any symptoms associated with coronavirus-19. Ebola Screen: Patient negative for fever greater than or equal to 101.5 degrees Fahrenheit, and additional compatible Ebola Virus Disease symptoms Patient denies exposure to infectious person. Patient denies travel to an Ebola-affected area in the 21 days before illness onset. No symptoms or risks identified at this time. Initial Sepsis Screen: Does the patient meet any 2 criteria? No. Patient's initial sepsis screen is negative. Does the patient have a suspected source of infection? No. Patient's initial sepsis screen is negative. Risk Assessment: Do you want to hurt yourself or someone else? Patient reports no desire to harm self or others. Onset of symptoms was October 29, 2020. 17:30 Method Of Arrival: Ambulatory ca1 17:30 Acuity: COTY 3 ca1 Triage Assessment: 23:35 General: Behavior is calm, cooperative. ca1 Historical: - Allergies: 17:33 Aspirin; ca1 17:33 unknown muscle relaxer; ca1 17:33 Bees; ca1 - PMHx: 17:33 Pancreatitis; ca1 - Immunization history:: Client reports having NOT received the Covid vaccine. Flu vaccine is up to date. - Social history:: Smoking status: Patient reports the use of cigarette tobacco products, smokes one pack cigarettes per day. - Family history:: not pertinent. Screenin:04 Abuse screen: Denies threats or abuse. Denies injuries from another. Nutritional ca1 screening: No deficits noted. Tuberculosis screening: No symptoms or risk factors identified. Fall Risk None identified. Assessment: 23:04 Reassessment: Patient and/or family updated on plan of care and expected duration. Pain ca1 level reassessed. General: Appears in no apparent distress. Pain: Denies pain. Neuro: No deficits noted. Cardiovascular: No deficits noted. Respiratory: No deficits noted. Vital Signs: 17:30 BP 135 / 82; Pulse 95; Resp 18 S; Temp 99.4(O); Pulse Ox 99% on R/A; Weight 62.6 kg ca1 (R); Height 5 ft. 4 in. (162.56 cm) (R); Pain 0/10; 23:05 BP 126 / 72; Pulse 79; Resp 16; Pulse Ox 97% on R/A; ca1 17:30 Body Mass Index 23.69 (62.60 kg, 162.56 cm) ca1 ED Course: 16:53 Patient arrived in ED. mr 17:33 Triage completed. ca1 17:33 Arm band placed on right wrist. ca1 20:13 Marc Javed MD is Attending Physician. robe 21:18 XRAY Chest (1 view) In Process Unspecified. EDMS 21:41 CT Aorta for Dissection In Process Unspecified. EDMS 23:04 Patient has correct armband on for positive identification. ca1 23:04 No provider procedures requiring assistance completed. Inserted saline lock: 20 gauge ca1 in right antecubital area, using aseptic technique. 23:07 Bill Shane MD is Referral Physician. robe 23:36 IV discontinued. ca1 Administered Medications: 21:28 CANCELLED (Duplicate Order): morphine 2 mg IVP once; (PAIN>8) RASS on ADMN: Combtv4, robe Very Agttd3, Agttd2, Rstlss1, AlertClm0, Drwsy-1, LtSdtn-2, ModSdtn-3, DpSdtn-4, UnArsble-5 x2 21:43 Drug: NS 0.9% 500 ml Route: IV; Rate: bolus; Site: right antecubital; ca1 21:43 Drug: NS 0.9% 1000 ml Route: IV; Rate: 125 ml/hr; Site: right antecubital; ca1 21:43 Drug: Pepcid (famotidine) 20 mg Route: IVP; Site: right antecubital; ca1 21:43 Drug: Zofran (Ondansetron) 4 mg Route: IVP; Site: right antecubital; ca1 21:43 Drug: PlaVIX (clopidogrel) 75 mg Route: PO; ca1 21:49 Drug: traMADol 100 mg Route: PO; ca1 22:04 Drug: Imdur (isosorbide mononitrate) 30 mg Route: PO; ca1 23:19 Drug: PlaVIX (clopidogrel) 75 mg Route: PO; ca1 Outcome: 23:09 Discharge ordered by MD. nagel 23:36 Discharged to home ambulatory. ca1 23:36 Condition: good 23:36 Discharge instructions given to patient, Prescriptions given X 23:37 Patient left the ED. ca1 Signatures: Dispatcher [employer] EDMS Marc Javed MD MD cha Rivera, Mary mr Acob, Cheryl, RN RN ca1
[2020-10-29 23:44] VITALS: TEMP 99.4
[2020-10-29 23:47] VITALS: BP 126/72; O2SAT 97
--- NOTE | 2020-10-30 07:28 | EKG ---
Test Date: 2020-10-29 Test Time: 21:57:25 Orthoptist: MEASUREMENT RESULTS: Intervals: Rate: 84 RI: 180 QRSD: 88 QT: 398 QTc: 470 [place]: P: 73 RI: 180 QRS: -70 T: 52 INTERPRETIVE STATEMENTS: Normal sinus rhythm Possible Left atrial enlargement Left axis deviation Low voltage QRS Abnormal ECG Compared to ECG 11/17/2019 13:05:51 Low QRS voltage now present Electronically Signed On 10-30-20 07:27:41 CDT by Bill Shane
== END 2020-10-29 23:37 | disposition home or self-care (01) ==
LOC: ER 16:47
DX: I73.9 Peripheral vascular disease, unspecified (principal); Z72.0 Tobacco use; Z71.6 Tobacco abuse counseling; Z20.822 Contact with and (suspected) exposure to COVID-19; Z88.5 Allergy status to narcotic agent; Z88.6 Allergy status to analgesic agent; Z91.030 Bee allergy status
CPT/HCPCS: 93005; 85025; 80048; 36415; 83735; 85610; 80061; 82565; 80076; 84484; 83690; 83880; 80307; 71275; 74175; 71045; 96375; 96374; 99284; U0003; Q9967; J2270; J7030; J2405